=== PATIENT | male | born 1940 | race Caucasian/White ===

== ENCOUNTER 2019-03-25 10:17 | Outpatient (REF) | payer OTHER, SELFPAY ==
[2019-03-25 15:33] LABS: Abs Immature Grans 0.02 k/cumm (0.0-0.09); Absolute Basophil Count 0.02 k/cumm (0.0-0.2); Absolute Eosinophil Count 0.45 k/cumm (0.0-0.7); Absolute Lymphocyte Count 1.01 k/cumm (1.2-3.4); Absolute Monocyte Count 0.67 k/cumm (0.11-0.7); Absolute Neutrophil Count 5.15 k/cumm (1.2-6.7); Basophils % 0.3; Eosinophils % 6.1; HCT 22.5 % (40.0-50.0); HGB 7.2 g/dL (13.5-17.5); Immature Grans % 0.3 %; Lymphocytes % 13.8; Mean Corpuscular Hemoglobin 30.3 pg (27.0-33.0); Mean Corpuscular Volume 94.5 fL (80-95); Mean Platelet Volume 10.5 fL (8.0-11.0); Monocytes % 9.2; Neutrophils % 70.3; Platelet Count 256 x1000/uL (130-400); RBC 2.38 m/cumm (4.50-6.00); RBC Distribution Width 13.4 % (11.8-14.1); White Blood Cell Count 7.32 k/cumm (4.4-10.8)
[2019-03-25 16:02] LABS: Anion Gap 11.4 mmol/L (3-11); BUN 58 mg/dL (7-18); CO2 24.6 mmol/L (21.0-32.0); CREATININE 2.42 mg/dL (0.70-1.30); Calcium 8.8 mg/dL (8.5-10.1); Chloride 110 mmol/L (98-107); Glucose 163 mg/dL (74-106); Potassium 3.2 mmol/L (3.5-5.1); Sodium 146 mmol/L (136-145)
== END 2019-03-25 10:37 ==
LOC: LBN 10:17
PROVIDERS: Nurse Practitioner Adult Health; PCP Internal Medicine; Visit Provider Internal Medicine
DX: N18.3 Chronic kidney disease, stage 3 (moderate) (principal); E78.5 Hyperlipidemia, unspecified; Z48.811 Encounter for surgical aftercare following surgery on the nervous system
CPT/HCPCS: 80048; 85025

== ENCOUNTER 2019-04-18 07:06 | Emergency (ER) | payer OTHER, SELFPAY ==
[2019-04-18] VITALS (47 sets, daily range): BP systolic 115–169; BP diastolic 40–100; PULSE 41–70; RESP 10–20; TEMP 36–36.4; O2SAT 82–99
--- NOTE | 2019-04-18 07:51 | ED.GENADUL_ITS ---
Discharge Plan Disposition Patient Disposition: HOME Condition: Stable Discharge Details Chief Complaint: GenMedical Clinical Impression: Fall, Anemia, Creatinine elevation Primary Care Provider: KRISTINA VALDOVINOS ED Provider: Rosanne Ordaz Home Meds and New Rx's Prescriptions: Continued furosemide [Lasix] 40 mg Tablet 40 mg DAILY RF: 0 insulin glargine 100 unit/mL Solution 16 unit SUBCUT DAILY RF: 0 doxazosin 1 mg Tablet 1 mg DAILY RF: 0 doxazosin 1 mg Tablet 1 mg DAILY RF: 0 pravastatin 40 mg Tablet 40 mg DAILY RF: 0 chlorthalidone 25 mg Tablet 25 mg DAILY RF: 0 aspirin [Aspir-Low] 81 mg Tablet,Delayed Release (Dr/Ec) 81 mg DAILY RF: 0 isosorbide mononitrate 60 mg Tablet Extended Release 24 Hr PO DAILY RF: 0 magnesium hydroxide [Milk of Magnesia] 400 mg/5 mL Suspension PRNRF: 0 amlodipine 10 mg Tablet 10 mg DAILY RF: 0 bisacodyl [Dulcolax (bisacodyl)] 10 mg Suppository HI PRNRF: 0 ferrous sulfate 325 mg (65 mg iron) Tablet 325 mg DAILY RF: 0 Fleet Enema 19-7 gram/118 mL Enema HI PRNRF: 0 omeprazole 20 mg Capsule,Delayed Release(Dr/Ec) 20 mg DAILY RF: 0 allopurinol 300 mg Tablet 300 mg DAILY RF: 0 ergocalciferol (vitamin D2) 1,250 mcg (50,000 unit) Capsule 1,250 mcg DAILY RF: 0 labetalol 100 mg Tablet 100 mg BID RF: 0 losartan 100 mg Tablet 100 mg DAILY RF: 0 albuterol sulfate 2.5 mg/0.5 mL Solution For Nebulization PRNRF: 0 olodaterol 2.5 mcg/actuation Mist 2.5 INHALATION RF: 0 Discharge Instructions Instructions: Anemia (ED), Impaired Kidney Function (ED) Additional Instructions: Please return immediately to the emergency department if you develop any new or worsening symptoms, if your condition does not improve as expected, or if you become otherwise concerned. It is extremely important that you call soon as possible to make an appointment to be seen in follow-up for this visit by your primary care doctor. Referrals: KRISTINA VALDOVINOS [Primary Care Provider] - Discharge Data Discharge Date/Time-TO BE ENTERED AT DEPARTURE: 04/18/19 12:30 Medical Decision Making Keithsophia Ibrahim is a 78-year-old man with a history of COPD, CHF, hypertension, ins ulin-dependent diabetes who presented to the emergency department from rehab facility for being found down, low blood sugar. On exam patient is somewhat chronically ill appearing but acutely nontoxic, he is alert and pleasant. No abnormalities on his back exam. Nonfocal neurologic exam. Scrotal edema chronic and improving per nurse at rehab facility. Fingerstick here 110. Concern for possible recurrent hypoglycemia, metabolic/lyte derangement, UTI. Possible acute emergent intracranial trauma, acute emergent intra- abdominal/retroperitoneal/lumbar spine injury given complaint of low back pain and patient is a poor historian with possible head trauma. Doubt ACS. Exam/history is not consistent with acute respiratory pathology, sepsis, acute emergent aortic process, cerebrovascular accident, pulmonary embolism. Plan for CT head, CT abdomen/pelvis/lumbar, UA,, screening labs. Will monitor and reassess. Labs reviewed, hemoglobin 8.8, creatinine 3.0, troponin 0.05. I contacted the [facility] as the patient had an appointment with surgery there this afternoon, they stated that they could not accept patient in transfer to the [facility] from the emergency department for their surgical appointment regarding hernia repair. They also stated that they could not accept any patient for admission at this time. Patient states that he has no complaints and feels quite well, states that he would like to go home. We will continue to monitor. UA negative. CT negative for acute process per radiology. Troponin 0.07. Patient continues to state that he has no symptoms whatsoever and feels ready to go. He has eaten lunch without issue, no further episodes of hypoglycemia. Given patient's elevated creatinine and overall presentation, I do not believe that this trace elevation in troponin is related to acute coronary syndrome at this time. I discussed patient with [employer] director transportation at rehab facility, relayed lab abnormalities. She states that she feels comfortable accepting patient to rehab, will recheck labs tomorrow. At this time I do not feel that admission to the hospital would benefit the patient, in addition, the patient states that he would prefer to go back to rehab and does not want to be admitted. I had a lengthy discussion with Patient regarding return to emergency department precautions, home care, and importance of outpatient follow-up. Pt verbalizes understanding of the plan and is amenable. Patient discharged to home with clear plan for outpatient follow-up. All questions were answered. Disposition decision was made weighing the risks and benefits of hospitalization versus outpatient treatment, the risk for further decompensation, and the patient's wishes. Medical Records Medical records reviewed: Yes I reviewed the patient's medical records. Imaging Data Radiologic Study: Attestation: I personally reviewed and interpreted this imaging study as follows: Radiologist's impression: CT head, abdomen/pelvis, lumbar reported over the phone by radiology: Negative Lab Data Lab results reviewed: Yes I reviewed the patient's lab results. Labs: Laboratory Tests Range/Units 04/18/19 04/18/19 04/18/19 07:50 07:50 07:50 WBC (4.4-10.8) k/cumm 5.84 RBC (4.50-6.00) m/cumm 2.97 L Hgb (13.5-17.5) g/dL 8.8 L Hct (40.0-50.0) % 28.1 L MCV (80-95) fL 94.6 MCH (27.0-33.0) pg 29.6 MCHC (32.0-36.0) g/dL 31.3 L RDW (11.8-14.1) % 13.6 Plt Count (130-400) x1000/uL 180 MPV (8.0-11.0) fL 11.3 H Immature Gran % % 0.2 Neutrophils % 80.8 Lymphocytes % 12.3 Monocytes % 2.9 Eosinophils % 3.3 Basophils % 0.5 Absolute Neutrophils (1.2-6.7) k/cumm 4.72 Absolute Lymphocytes (1.2-3.4) k/cumm 0.72 L Absolute Monocytes (0.11-0.7) k/cumm 0.17 Absolute Eosinophils (0.0-0.7) k/cumm 0.19 Absolute Basophils (0.0-0.2) k/cumm 0.03 RBC Morphology See below Polychromasia Present Hypochromasia 1+ Poikilocytosis 1+ Anisocytosis 2+ Sodium Cancelled 143 Potassium Cancelled 3.4 L Chloride Cancelled 105 Carbon Dioxide Cancelled 27.8 Anion Gap Cancelled 10.2 BUN Cancelled 74 H Creatinine Cancelled 3.03 H Estimated GFR/1.73 m2 Cancelled 20.21 Glucose Cancelled 115 H Calcium Cancelled 9.3 Magnesium (1.8-2.4) mg/dL Total Bilirubin Cancelled 0.7 AST Cancelled 24 ALT Cancelled 16 Alkaline Phosphatase Cancelled 84 Creatine Kinase (39-308) U/L Troponin I (<0.06) ng/Ml 0.05 NT-Pro-B Natriuret Pep (<300) pg/mL Total Protein Cancelled 7.0 Albumin Cancelled 3.7 Urine Color (Yellow) Urine Clarity (Clear) Urine pH (5-8) Ur Specific [place] (1.005-1.025) Urine Protein (Negative) mg/dL Urine Ketones (Negative) mg/dL Urine Blood (Negative) Urine Nitrite (Negative) Urine Bilirubin (Negative) Urine Urobilinogen (Up TO 0.2) EU/dL Ur Leukocyte Esterase (Negative) Urine RBC (0-2) HPF Urine WBC (0-5) HPF Ur Epithelial Cells (Negative) HPF Urine Crystals (Negative) HPF Urine Bacteria (Negative) HPF Urine Casts (Negative) LPF Urine Mucus (Negative) Ur Culture Indicated? Urine Glucose (Negative) mg/dL Range/Units 04/18/19 04/18/19 04/18/19 07:50 07:50 08:19 WBC (4.4-10.8) k/cumm RBC (4.50-6.00) m/cumm Hgb (13.5-17.5) g/dL Hct (40.0-50.0) % MCV (80-95) fL MCH (27.0-33.0) pg MCHC (32.0-36.0) g/dL RDW (11.8-14.1) % Plt Count (130-400) x1000/uL MPV (8.0-11.0) fL Immature Gran % % Neutrophils % Lymphocytes % Monocytes % Eosinophils % Basophils % Absolute Neutrophils (1.2-6.7) k/cumm Absolute Lymphocytes (1.2-3.4) k/cumm Absolute Monocytes (0.11-0.7) k/cumm Absolute Eosinophils (0.0-0.7) k/cumm Absolute Basophils (0.0-0.2) k/cumm RBC Morphology Polychromasia Hypochromasia Poikilocytosis Anisocytosis Sodium Potassium Chloride Carbon Dioxide Anion Gap BUN Creatinine Estimated GFR/1.73 m2 Glucose Calcium Magnesium (1.8-2.4) mg/dL 2.3 Total Bilirubin AST ALT Alkaline Phosphatase Creatine Kinase (39-308) U/L 205 Troponin I (<0.06) ng/Ml NT-Pro-B Natriuret Pep (<300) pg/mL 2691 H Total Protein Albumin Urine Color (Yellow) Yellow Urine Clarity (Clear) Clear Urine pH (5-8) 5.5 Ur Specific [place] (1.005-1.025) 1.025 Urine Protein (Negative) mg/dL Negative Urine Ketones (Negative) mg/dL Negative Urine Blood (Negative) Trace-intact H Urine Nitrite (Negative) Negative Urine Bilirubin (Negative) Negative Urine Urobilinogen (Up TO 0.2) EU/dL 0.2 Ur Leukocyte Esterase (Negative) Negative Urine RBC (0-2) HPF 0-2 Urine WBC (0-5) HPF 0-2 Ur Epithelial Cells (Negative) HPF Few Urine Crystals (Negative) HPF Negative Urine Bacteria (Negative) HPF Few Urine Casts (Negative) LPF Negative Urine Mucus (Negative) Negative Ur Culture Indicated? No Urine Glucose (Negative) mg/dL Negative Range/Units 04/18/19 10:33 WBC (4.4-10.8) k/cumm RBC (4.50-6.00) m/cumm Hgb (13.5-17.5) g/dL Hct (40.0-50.0) % MCV (80-95) fL MCH (27.0-33.0) pg MCHC (32.0-36.0) g/dL RDW (11.8-14.1) % Plt Count (130-400) x1000/uL MPV (8.0-11.0) fL Immature Gran % % Neutrophils % Lymphocytes % Monocytes % Eosinophils % Basophils % Absolute Neutrophils (1.2-6.7) k/cumm Absolute Lymphocytes (1.2-3.4) k/cumm Absolute Monocytes (0.11-0.7) k/cumm Absolute Eosinophils (0.0-0.7) k/cumm Absolute Basophils (0.0-0.2) k/cumm RBC Morphology Polychromasia Hypochromasia Poikilocytosis Anisocytosis Sodium Potassium Chloride Carbon Dioxide Anion Gap BUN Creatinine Estimated GFR/1.73 m2 Glucose Calcium Magnesium (1.8-2.4) mg/dL Total Bilirubin AST ALT Alkaline Phosphatase Creatine Kinase (39-308) U/L Troponin I (<0.06) ng/Ml 0.07 NT-Pro-B Natriuret Pep (<300) pg/mL Total Protein Albumin Urine Color (Yellow) Urine Clarity (Clear) Urine pH (5-8) Ur Specific [place] (1.005-1.025) Urine Protein (Negative) mg/dL Urine Ketones (Negative) mg/dL Urine Blood (Negative) Urine Nitrite (Negative) Urine Bilirubin (Negative) Urine Urobilinogen (Up TO 0.2) EU/dL Ur Leukocyte Esterase (Negative) Urine RBC (0-2) HPF Urine WBC (0-5) HPF Ur Epithelial Cells (Negative) HPF Urine Crystals (Negative) HPF Urine Bacteria (Negative) HPF Urine Casts (Negative) LPF Urine Mucus (Negative) Ur Culture Indicated? Urine Glucose (Negative) mg/dL ECG Data Attestation: I personally reviewed and interpreted this ECG (s) as follows: Interpretation: EKG shows sinus bradycardia at 52, left bundle branch block (present on prior per rehab facility), does not meet STEMI criteria, nondiagnostic EKG HPI General Mode of arrival: EMS . Date/Time Provider Initiated Documentation: 04/18/19 07:39 . Information obtained by: patient, RN notes reviewed and old records reviewed . HPI Narrative: Keith Ibrahim is a 78-year-old man with a history of insulin- dependent diabetes, hypertension, CHF, COPD presenting to the emergency department from [facility] rehab with fall, low blood sugar. Per rehab nurse who I spoke with on the phone, patient was found on the floor in his room this morning. He was disoriented, found to have a blood sugar of 46 and was given glucagon. Pt's mental status returned to baseline after glucagon per nurse. Nurse also reports that patient recently had hernia repair and has had a chronically swollen scrotum, she reports that his scrotal edema is improving. She reports that patient was in his usual state of health yesterday. Patient is a poor historian. Patient states to me that he feels a little shaky and otherwise fine. He denies falling this morning. He states that he has low back pain, cannot describe the duration of his pain, but states that it has been going on for longer than this morning. He denies any other pain, fever, shortness of breath, cough, numbness, weakness. Patient reports I basically feel fine, I don't think I need to be here. Related Data Home Medications Medication Instructions Recorded Confirmed Fleet Enema ml HI PRN 04/18/19 albuterol sulfate PRN 04/18/19 allopurinol 300 mg DAILY 04/18/19 04/18/19 amlodipine 10 mg DAILY 04/18/19 04/18/19 aspirin [Aspir-Low] 81 mg DAILY 04/18/19 04/18/19 bisacodyl [Dulcolax (bisacodyl)] mg HI PRN 04/18/19 chlorthalidone 25 mg DAILY 04/18/19 04/18/19 doxazosin 1 mg DAILY 04/18/19 04/18/19 doxazosin 1 mg DAILY 04/18/19 04/18/19 ergocalciferol (vitamin D2) 1,250 mcg DAILY 04/18/19 04/18/19 ferrous sulfate 325 mg DAILY 04/18/19 04/18/19 furosemide [Lasix] 40 mg DAILY 04/18/19 04/18/19 insulin glargine 16 unit SUBCUT DAILY 04/18/19 04/18/19 isosorbide mononitrate mg PO DAILY 04/18/19 labetalol 100 mg BID 04/18/19 04/18/19 losartan 100 mg DAILY 04/18/19 04/18/19 magnesium hydroxide [Milk of PRN 04/18/19 Magnesia] olodaterol 2.5 INHALATION 04/18/19 omeprazole 20 mg DAILY 04/18/19 04/18/19 pravastatin 40 mg DAILY 04/18/19 04/18/19 General Stated Complaint: GenMedical ALBINA: 3 Review of Systems Narrative: Constitutional: denies fevers Eyes: denies eye pain ENT: denies ear pain, dental pain, sore throat Cardiovascular: denies chest pain Respiratory: denies SOB, cough GI: denies abdominal pain, vomiting, diarrhea : denies flank pain, reports scrotal edema MSK: denies neck pain, arthralgias, myalgias, reports low back pain Skin: denies rash Neuro: denies headaches, numbness, weakness [facility] Medical History (Updated 04/18/19 @ 12:25 by Rosanne Ordaz MD) COPD (chronic obstructive pulmonary disease) (Chronic) Depression (Chronic) Diabetes mellitus (Chronic) GERD (gastroesophageal reflux disease) (Chronic) Gout (Chronic) Hernia (Chronic) High cholesterol (Chronic) Renal failure (Chronic) Renal insufficiency (Chronic) Social History Smoking/Tobacco Use Status: Never Alcohol Intake: never Drug use: Never Substance use type: does not use Do you feel safe at home: Yes Do you feel safe in your relationship?: Yes Exam Narrative Exam Narrative: Constitutional: Somewhat chronically ill-appearing but acutely well and [id number], pleasant, conversing normally HENT: head atraumatic/normocephalic/normal inspection, mucous membranes moist Eyes: conjunctiva normal, sclera normal, pupils 3mm b/l, EOMI without nystagmus Neck: no stridor, normal ROM, trachea midline, no cervical spine tenderness to palpation Chest: normal inspection Resp: normal work of breathing, LCTAB Cardio: normal rate, normal rhythm, no murmur appreciated GI: abdomen soft, non-tender, non-distended : 3+ scrotal edema without skin breakdown, erythema, or other overlying skin changes, no tenderness to palpation Back: normal inspection, no rash, thoracic and lumbar spine nontender to palpation, no paraspinal tenderness to palpation bilaterally Skin: warm, dry, normal color, no rash Neuro: alert, not altered, powerhouse tender 2-12 intact, motor 5 out of 5 throughout, normal bilateral [id number], normal bilateral [id number], no pronator drift, normal tone Ext: No posterior calf tenderness to palpation, moving all extremities equally Psych: normal mood, normal affect, normal behavior Course Vital Signs Vital signs: Vital Signs Temperature 36.0 C L 04/18/19 07:07 Pulse 57 L 04/18/19 07:07 Respiratory Rate 16 04/18/19 07:07 Blood Pressure 132/50 L 04/18/19 07:07 Pulse Oximetry 95 04/18/19 07:07 Temperature 36.0 C L 04/18/19 07:07 Temperature Source Tympanic 04/18/19 07:07 Pulse 57 L 04/18/19 07:07 Respiratory Rate 16 04/18/19 07:07 Respiratory Effort Non-Labored 04/18/19 07:12 Blood Pressure 132/50 L 04/18/19 07:07 Blood Pressure Position Sitting 04/18/19 07:07 Pulse Oximetry 95 04/18/19 07:07 Oxygen Delivery Method Room Air 04/18/19 07:07 Oxygen Flow Rate 0 04/18/19 07:07 Pain Level 10 04/18/19 07:07
[2019-04-18 08:03] LABS: Abs Immature Grans 0.01 k/cumm (0.0-0.09); Absolute Basophil Count 0.03 k/cumm (0.0-0.2); Absolute Eosinophil Count 0.19 k/cumm (0.0-0.7); Absolute Lymphocyte Count 0.72 k/cumm (1.2-3.4); Absolute Monocyte Count 0.17 k/cumm (0.11-0.7); Absolute Neutrophil Count 4.72 k/cumm (1.2-6.7); Basophils % 0.5; Eosinophils % 3.3; HCT 28.1 % (40.0-50.0); HGB 8.8 g/dL (13.5-17.5); Immature Grans % 0.2 %; Lymphocytes % 12.3; Mean Corp. HGB Concentration 31.3 g/dL (32.0-36.0); Mean Corpuscular Hemoglobin 29.6 pg (27.0-33.0); Mean Corpuscular Volume 94.6 fL (80-95); Mean Platelet Volume 11.3 fL (8.0-11.0); Monocytes % 2.9; Neutrophils % 80.8; Platelet Count 180 x1000/uL (130-400); RBC 2.97 m/cumm (4.50-6.00); RBC Distribution Width 13.6 % (11.8-14.1); White Blood Cell Count 5.84 k/cumm (4.4-10.8)
[2019-04-18 08:23] LABS: ALT 16 U/L (16-63); AST 24 U/L (15-37); Albumin 3.7 g/dL (3.4-5.0); Alkaline Phosphatase 84 U/L (46-116); Anion Gap 10.2 mmol/L (3-11); BUN 74 mg/dL (7-18); Bilirubin, Total 0.7 mg/dL (0.2-1.0); CO2 27.8 mmol/L (21.0-32.0); CREATININE 3.03 mg/dL (0.70-1.30); Calcium 9.3 mg/dL (8.5-10.1); Chloride 105 mmol/L (98-107); Estimated GFR 20.21 (mL/min/1.73m2); Glucose 115 mg/dL (74-106); Potassium 3.4 mmol/L (3.5-5.1); Sodium 143 mmol/L (136-145); Troponin I 0.05 ng/Ml (<0.06)
[2019-04-18 08:28] LABS: Bilirubin Negative (Negative); Blood Trace-intact (Negative); Clarity Clear (Clear); Glucose Negative (Negative); Ketones Negative (Negative); Leukocyte Esterase Negative (Negative); Nitrite Negative (Negative); Specific Gravity 1.025 (1.005-1.025); Urobilinogen 0.2 EU/dL (Up TO 0.2); pH 5.5 (5-8)
--- NOTE | 2019-04-18 08:30 | DI.CT_ITS ---
EXAM: CT HEAD WO CLINICAL HISTORY: fall. TECHNIQUE: Imaging Protocol: Axial computed tomography images with coronal and sagittal reformatted images were created and reviewed COMPARISON: No exams were available for comparison FINDINGS: Ventricles and Extra axial spaces: Normal in size and morphology for the patient's age. Hemorrhage: None. Cerebral parenchyma: Normal. There are areas of decreased attenuation in the white matter consistent with small vessel ischemic disease. Midline shift: None. Brainstem/Cerebellum: Normal. Calvarium: Normal. Visualized Paranasal sinuses/Mastoids: Clear. There is patient motion artifact. IMPRESSION: No acute intracranial process. The findings were discussed with the emergency department on the date of the examination. RADIATION DOSE DELIVERED: DATA REPOSITORY: All CT scans at this facility are submitted to the National Radiology Data Registry (NRDR) Dose Index Registry (DIR) with the [employer] ([employer]). RADIATION OPTIMIZATION: All CT scans at this facility use at least one of these dose optimization te chniques: automated exposure control; mA and/or kV adjustment per patient size (includes targeted exa ms where dose is matched to clinical indication); or iterative reconstruction.
--- NOTE | 2019-04-18 08:36 | NUR.NOTE ---
Nursing Note: Spoke with [facility] staff. Staff reports that the [facility]. Scrotum is very swollen. MD Ordaz made aware. UA sample sent to lab.
--- NOTE | 2019-04-18 08:40 | DI.CT_ITS ---
EXAM: CT ABDOMEN PELVIS WO and CT lumbar spine reconstructions CLINICAL HISTORY: trauma, diffuse low back pain, flank pain. TECHNIQUE: Imaging Protocol: Axial computed tomography images with coronal and sagittal reformatted images were created and reviewed. COMPARISON: No exams were available for comparison FINDINGS: ABDOMEN: Lung Bases: Moderate bilateral pleural effusions and bilateral basilar infiltrates which may represen t atelectasis or pneumonia. Cardiomegaly. Liver: Normal density. No measurable mass. Gallbladder and biliary tract: Cholelithiasis. No biliary ductal dilatation. There does appear to b e sludge within the gallbladder. Pancreas: Normal density, no abnormal calcifications or inflammatory process. Spleen: Normal. Kidneys: Normal size, contour and axis. No radiodense stones or obstructive uropathy. 2.3 cm. round, hypodense right renal cortical lesion. This is indeterminate on this noncontrast examination. Adrenal glands: 1.7 cm left adrenal nodule. Lymph nodes: Within normal limits. Abdominal Aorta: Atherosclerosis. No aneurysmal dilatation. PELVIS: Bladder: Incompletely distended. The apparent bladder wall thickening appears to be due to incomplet e distention. Bowel: No obstruction or bowel wall thickening. Normal appendix is visualized. Peritoneal cavity: No ascites, collection or mesenteric inflammatory response. Large bilateral fat co ntaining inguinal hernia. Reproductive organs: Enlarged prostate gland. Bones: Degenerative changes are seen in the spine. No acute fracture is identified. Lumbar spine: No acute fracture or subluxation is seen in the lumbar spine. There is a left convex s coliosis of the lumbar spine. Moderately severe degenerative changes are present throughout the lumb ar spine. Old fractures of the left transverse processes of L2 and L3 are noted. IMPRESSION: 1. No evidence of acute abdominal or pelvic injury. 2. Moderate bilateral pleural effusions and bilateral basilar infiltrates which may represent atelect asis or pneumonia. Cardiomegaly. 3. 1.7 cm left adrenal nodule, follow-up is recommended on a nonemergent basis. 4. 0.3 cm hypodense lesion in the right kidney. Nonemergent follow-up is recommended. 5. Cholelithiasis with possible sludge. No biliary ductal dilatation. 6. These findings were discussed with the emergency department on the date of the examination. DATA REPOSITORY: All CT scans at this facility are submitted to the National Radiology Data Registry (NRDR) Dose Index Registry (DIR) with the [employer] ([employer]). RADIATION OPTIMIZATION: All CT scans at this facility use at least one of these dose optimization te chniques: automated exposure control; mA and/or kV adjustment per patient size (includes targeted exa ms where dose is matched to clinical indication); or iterative reconstruction.
[2019-04-18 08:41] LABS: Creatine Kinase 205 U/L (39-308)
[2019-04-18 08:47] LABS: Magnesium 2.3 mg/dL (1.8-2.4); NT-proBNP 2691 pg/mL (<300)
[2019-04-18 08:49] LABS: Anisocytosis 2+; Hypochromasia 1+; Poikilocytes 1+; Polychromasia Present
[2019-04-18 09:02] LABS: WBC 0-2 HPF (0-5)
[2019-04-18 09:03] LABS: Bacteria Few HPF (Negative); Epithelial Cells Few HPF (Negative); RBC 0-2 HPF (0-2)
[2019-04-18 09:04] LABS: C & S Indicated? No; Casts Negative LPF (Negative); Crystals Negative HPF (Negative); Mucus Negative (Negative)
--- NOTE | 2019-04-18 10:08 | NUR.NOTE ---
Nursing Note: BGL [id number]
--- NOTE | 2019-04-18 10:16 | NUR.NOTE ---
Nursing Note: PT care report transferred to Bouchra (RN) at this time. PT is alert to baseline. Vitals stable.
[2019-04-18 10:58] LABS: Troponin I 0.07 ng/Ml (<0.06)
== END 2019-04-18 12:30 | disposition home or self-care (01) ==
PROVIDERS: Emergency Provider Student in an Organized Health Care Education/Training Program; PCP Student in an Organized Health Care Education/Training Program
DX: E11.649 Type 2 diabetes mellitus with hypoglycemia without coma (principal); Z79.4 Long term (current) use of insulin; W19.XXXA Unspecified fall, initial encounter; R94.4 Abnormal results of kidney function studies; D64.9 Anemia, unspecified; J44.9 Chronic obstructive pulmonary disease, unspecified; I13.0 Hypertensive heart and chronic kidney disease with heart failure and stage 1 through stage 4 chronic kidney disease, or unspecified chronic kidney disease; I50.9 Heart failure, unspecified; N18.9 Chronic kidney disease, unspecified; E11.22 Type 2 diabetes mellitus with diabetic chronic kidney disease
CPT/HCPCS: 36415; 36416; 80053; 82550; 82962; 93005; 99285; 70450; 74176; 81003; 81015; 83735; 83880; 84484; 85025; 93010

== ENCOUNTER 2019-04-26 10:12 | Outpatient (CLI) | payer OTHER, SELFPAY ==
[2019-04-26 12:39] LABS: Abs Immature Grans 0.02 k/cumm (0.0-0.09); Absolute Basophil Count 0.01 k/cumm (0.0-0.2); Absolute Eosinophil Count 0.12 k/cumm (0.0-0.7); Absolute Lymphocyte Count 0.57 k/cumm (1.2-3.4); Absolute Monocyte Count 0.34 k/cumm (0.11-0.7); Absolute Neutrophil Count 7.54 k/cumm (1.2-6.7); Basophils % 0.1; Eosinophils % 1.4; HCT 24.6 % (40.0-50.0); HGB 7.2 g/dL (13.5-17.5); Immature Grans % 0.2 %; Lymphocytes % 6.6; Mean Corp. HGB Concentration 29.3 g/dL (32.0-36.0); Mean Corpuscular Hemoglobin 28.9 pg (27.0-33.0); Mean Corpuscular Volume 98.8 fL (80-95); Mean Platelet Volume 11.3 fL (8.0-11.0); Neutrophils % 87.7; Platelet Count 165 x1000/uL (130-400); RBC 2.49 m/cumm (4.50-6.00); RBC Distribution Width 13.8 % (11.8-14.1)
[2019-04-26 13:06] LABS: Anion Gap 8.2 mmol/L (3-11); CO2 30.8 mmol/L (21.0-32.0); CREATININE 2.78 mg/dL (0.70-1.30); Calcium 9.5 mg/dL (8.5-10.1); Chloride 109 mmol/L (98-107); Estimated GFR 22.27 (mL/min/1.73m2); Glucose 162 mg/dL (74-106); Potassium 3.9 mmol/L (3.5-5.1); Sodium 148 mmol/L (136-145)
[2019-04-26 13:10] LABS: Diff Comment RBC Morph Reviewed
[2019-04-26 13:11] LABS: BUN 89 mg/dL (7-18); Hypochromasia 2+; Microcytosis 1+; Poikilocytes 1+
== END 2019-04-26 10:32 ==
PROVIDERS: PCP Student in an Organized Health Care Education/Training Program; Visit Provider Nurse Practitioner Adult Health
DX: E78.5 Hyperlipidemia, unspecified (principal); N18.3 Chronic kidney disease, stage 3 (moderate); K40.90 Unilateral inguinal hernia, without obstruction or gangrene, not specified as recurrent
CPT/HCPCS: 36415; 80048; 85025

== ENCOUNTER 2019-04-28 08:47 | Emergency (ER) | payer OTHER, SELFPAY ==
[2019-04-28] VITALS (12 sets, daily range): BP systolic 146–154; BP diastolic 51–63; PULSE 62–76; RESP 0–24; TEMP 36.7; O2SAT 86–99
--- NOTE | 2019-04-28 08:45 | DI.RAD_ITS ---
EXAM: XR CHEST 2V PA LATERAL CLINICAL HISTORY: cough, sob, r/o chf vs pneumonia TECHNIQUE: COMPARISON: CT LUMBAR SPINE RECONS from 04/18/2019 CT ABDOMEN PELVIS WO from 04/18/2019 FINDINGS: There are bilateral pleural effusions as noted on CT of April 17. There are bilateral diffuse patch y interstitial infiltrates, findings as described are consistent with CHF, cardiomegaly also noted. IMPRESSION: Findings consistent with CHF, additional superimposed infectious process cannot be excluded on the ba sis of this examination.
--- NOTE | 2019-04-28 09:03 | ED.GENADUL_ITS ---
Discharge Plan Disposition Patient Disposition: HOME Condition: Stable Discharge Details Chief Complaint: RespSymp Clinical Impression: Acute on chronic systolic CHF (congestive heart failure), Peripheral edema Primary Care Provider: Dana Klein ED Provider: Angeline Xiong Home Meds and New Rx's Prescriptions: Continued furosemide [Lasix] 40 mg Tablet 40 mg PO DAILY RF: 0 insulin glargine 100 unit/mL Solution 16 unit SUBCUT DAILY RF: 0 doxazosin 1 mg Tablet 1 mg DAILY RF: 0 doxazosin 1 mg Tablet 1 mg PO DAILY RF: 0 pravastatin 40 mg Tablet 40 mg DAILY RF: 0 chlorthalidone 25 mg Tablet 25 mg PO BID RF: 0 aspirin [Aspir-Low] 81 mg Tablet,Delayed Release (Dr/Ec) 81 mg DAILY RF: 0 isosorbide mononitrate 60 mg Tablet Extended Release 24 Hr PO DAILY RF: 0 magnesium hydroxide [Milk of Magnesia] 400 mg/5 mL Suspension PRNRF: 0 amlodipine 10 mg Tablet 10 mg PO DAILY RF: 0 bisacodyl [Dulcolax (bisacodyl)] 10 mg Suppository 10 mg ME PRN PRNRF: 0 ferrous sulfate 325 mg (65 mg iron) Tablet 325 mg DAILY RF: 0 Fleet Enema 19-7 gram/118 mL Enema 118 ml ME PRN PRNRF: 0 omeprazole 20 mg Capsule,Delayed Release(Dr/Ec) 20 mg DAILY RF: 0 allopurinol 300 mg Tablet 150 mg PO DAILY RF: 0 ergocalciferol (vitamin D2) 1,250 mcg (50,000 unit) Capsule 1,250 mcg PO DAILY RF: 0 labetalol 100 mg Tablet 100 mg BID RF: 0 losartan 100 mg Tablet 100 mg DAILY RF: 0 albuterol sulfate 2.5 mg/0.5 mL Solution For Nebulization PRNRF: 0 olodaterol 2.5 mcg/actuation Mist 2.5 INHALATION RF: 0 acetaminophen 325 mg Tablet 650 mg PO Q8H PRNRF: 0 Discharge Instructions Instructions: Heart Failure (ED), Leg Edema (ED) Additional Instructions: Increase your Lasix dose from 20 mg daily to 40 mg daily over the next 3 days. Elevate both of your legs as much as possible. Wear compression stockings as much as possible. Follow-up with your primary care doctor within the next 2 days for reevaluation. Return to the emergency department if you develop any worsening or concerning symptoms such as fever, worsening cough or shortness of breath. Discharge Data Discharge Date/Time-TO BE ENTERED AT DEPARTURE: 04/28/19 10:41 Discharge Physician: Angeline Xiong Medical Decision Making 09 --79-year-old male with a history of CHF, COPD, diabetes presents for shortness of breath and lower extremity edema. He is chronically on 2.5 L of nasal cannula. ED staff knows patient well and states his lower extremity edema is his baseline. Patient was seen here last week and his edema was noted to be similar. Patient denied any shortness of breath on arrival. He also initially denied cough but then stated he had a cough with green sputum. EKG on arrival notes a rate of 91, sinus, first-degree block. PVCs and left bundle branch block. No acute change from previous EKG. Patient has diminished breath sounds at bases with scattered wheezing and fine crackles noted at left base. He has 2+ pitting lower extremity edema. He has audible wheezes which ED staff also states his baseline. Differential diagnosis includes acute CHF exacerbation, acute COPD, pneumonia, bronchitis. Will check screening labs, chest x-ray and give a DuoNeb and reassess. 1010 --labs and imaging reviewed. Normal white blood cell count. Hemoglobin stable at 7.2. Creatinine stable at 2.7. Troponin negative. BNP 4476 increased from 2 weeks ago at 2691. Chest x-ray notes findings consistent with CHF. Medication list note that patient has not taken his Lasix today. He takes 20 mg daily. We will give a 40 mg p.o. dose now. Patient is requesting to go back to the rehab. Patient yelling at staff and attempting to get up from the stretcher so he can leave. Case discussed with patient's son Magnus over the phone who inquired about his condition. He was advised that he will be returning back to the rehab with plan for increased dose of Lasix over the next few days. Will hold on antibiotics at this time as patient has no fever with normal white blood cell count. Results and case also discussed with RIYA Kim at [facility] and she is agreeable with plan for discharge back to rehab. Medical Records Medical records reviewed: Yes I reviewed the patient's medical records. Imaging Data Radiologic Study: Radiologist's impression: XR CHEST 2V PA LATERAL CLINICAL HISTORY: cough, sob, r/o chf vs pneumonia TECHNIQUE: COMPARISON: CT LUMBAR SPINE RECONS from 04/18/2019 CT ABDOMEN PELVIS WO from 04/18/2019 FINDINGS: There are bilateral pleural effusions as noted on CT of April 17. There are bilateral diffuse patchy interstitial infiltrates, findings as described are consistent with CHF, cardiomegaly also noted. IMPRESSION: Findings consistent with CHF, additional superimposed infectious process cannot be excluded on the basis of this examination. Lab Data Lab results reviewed: Yes I reviewed the patient's lab results. Labs: Laboratory Tests Range/Units 04/28/19 04/28/19 04/28/19 09:12 09:12 09:12 WBC (4.4-10.8) k/cumm 4.82 RBC (4.50-6.00) m/cumm 2.39 L Hgb (13.5-17.5) g/dL 7.2 L Hct (40.0-50.0) % 23.6 L MCV (80-95) fL 98.7 H MCH (27.0-33.0) pg 30.1 MCHC (32.0-36.0) g/dL 30.5 L RDW (11.8-14.1) % 14.1 Plt Count (130-400) x1000/uL 148 MPV (8.0-11.0) fL 11.1 H Immature Gran % % 0.2 Neutrophils % 72.4 Lymphocytes % 17.0 Monocytes % 7.9 Eosinophils % 2.1 Basophils % 0.4 Absolute Neutrophils (1.2-6.7) k/cumm 3.49 Absolute Lymphocytes (1.2-3.4) k/cumm 0.82 L Absolute Monocytes (0.11-0.7) k/cumm 0.38 Absolute Eosinophils (0.0-0.7) k/cumm 0.10 Absolute Basophils (0.0-0.2) k/cumm 0.02 Sodium (136-145) mmol/L 147 H Potassium (3.5-5.1) mmol/L 3.4 L Chloride (98-107) mmol/L 109 H Carbon Dioxide (21.0-32.0) mmol/L 30.0 Anion Gap (3-11) mmol/L 8.0 BUN (7-18) mg/dL 89 H* Creatinine (0.70-1.30) mg/dL 2.87 H Estimated GFR/1.73 m2 (mL/min/1.73m2) 21.46 Glucose (74-106) mg/dL 114 H Calcium (8.5-10.1) mg/dL 9.5 Magnesium (1.8-2.4) mg/dL 2.7 H Total Bilirubin (0.2-1.0) mg/dL 0.7 AST (15-37) U/L 22 ALT (16-63) U/L 26 Alkaline Phosphatase (46-116) U/L 81 Troponin I (<0.06) ng/Ml < 0.05 NT-Pro-B Natriuret Pep (<300) pg/mL 4476 H Total Protein (6.4-8.2) g/dL 6.9 Albumin (3.4-5.0) g/dL 3.7 Procalcitonin ng/mL Range/Units 04/28/19 09:12 WBC (4.4-10.8) k/cumm RBC (4.50-6.00) m/cumm Hgb (13.5-17.5) g/dL Hct (40.0-50.0) % MCV (80-95) fL MCH (27.0-33.0) pg MCHC (32.0-36.0) g/dL RDW (11.8-14.1) % Plt Count (130-400) x1000/uL MPV (8.0-11.0) fL Immature Gran % % Neutrophils % Lymphocytes % Monocytes % Eosinophils % Basophils % Absolute Neutrophils (1.2-6.7) k/cumm Absolute Lymphocytes (1.2-3.4) k/cumm Absolute Monocytes (0.11-0.7) k/cumm Absolute Eosinophils (0.0-0.7) k/cumm Absolute Basophils (0.0-0.2) k/cumm Sodium (136-145) mmol/L Potassium (3.5-5.1) mmol/L Chloride (98-107) mmol/L Carbon Dioxide (21.0-32.0) mmol/L Anion Gap (3-11) mmol/L BUN (7-18) mg/dL Creatinine (0.70-1.30) mg/dL Estimated GFR/1.73 m2 (mL/min/1.73m2) Glucose (74-106) mg/dL Calcium (8.5-10.1) mg/dL Magnesium (1.8-2.4) mg/dL Total Bilirubin (0.2-1.0) mg/dL AST (15-37) U/L ALT (16-63) U/L Alkaline Phosphatase (46-116) U/L Troponin I (<0.06) ng/Ml NT-Pro-B Natriuret Pep (<300) pg/mL Total Protein (6.4-8.2) g/dL Albumin (3.4-5.0) g/dL Procalcitonin ng/mL 0.9 ECG Data Attestation: I personally reviewed and interpreted this ECG (s) as follows: Interpretation: Rate of 91, sinus, first-degree block. PVCs. Left bundle branch block. No acute change from previous EKG. HPI General Mode of arrival: EMS . Date/Time Provider Initiated Documentation: 04/28/19 09:12 . Limitations to Documentation: no limitations . Information obtained by: patient . HPI Narrative: Patient is a 79-year-old male with a history of CHF, COPD, diabetes, GERD presents from health [facility]hab for shortness of breath and lower extremity edema. Staff in the ED who know patient well states that his lower extremity edema is at his baseline for years. Patient denied any acute complaints on arrival to the ED initially and was noted to be singing per EMS staff when they picked him up. Patient did also initially denied cough, fever, chest pain, vomiting. He then stated he does have a cough with green sputum. He admits to some decrease in appetite. Related Data Home Medications Medication Instructions Recorded Confirmed Fleet Enema 118 ml ME PRN PRN 04/18/19 04/29/19 albuterol sulfate PRN 04/18/19 allopurinol 150 mg PO DAILY 04/18/19 04/29/19 amlodipine 10 mg PO DAILY 04/18/19 04/29/19 aspirin [Aspir-Low] 81 mg DAILY 04/18/19 04/29/19 bisacodyl [Dulcolax (bisacodyl)] 10 mg ME PRN PRN 04/18/19 04/29/19 chlorthalidone 25 mg PO BID 04/18/19 04/29/19 doxazosin 1 mg DAILY 04/18/19 04/28/19 doxazosin 1 mg PO DAILY 04/18/19 04/29/19 ergocalciferol (vitamin D2) 1,250 mcg PO DAILY 04/18/19 04/29/19 ferrous sulfate 325 mg DAILY 04/18/19 04/29/19 furosemide [Lasix] 20 mg DAILY 04/18/19 04/18/19 insulin glargine 16 unit SUBCUT DAILY 04/18/19 04/28/19 isosorbide mononitrate mg PO DAILY 04/18/19 labetalol 100 mg BID 04/18/19 04/28/19 losartan 100 mg DAILY 04/18/19 04/28/19 magnesium hydroxide [Milk of PRN 04/18/19 Magnesia] olodaterol 2.5 INHALATION 04/18/19 omeprazole 20 mg DAILY 04/18/19 04/28/19 pravastatin 40 mg DAILY 04/18/19 04/28/19 acetaminophen 650 mg PO Q8H PRN 04/28/19 04/29/19 Allergies Allergy/AdvReac Type Severity Reaction Status Date / Time citalopram Allergy Unknown Unverified 04/29/19 10:29 spironolactone Allergy Unknown Unverified 04/29/19 10:29 General Stated Complaint: RespSymp ALBINA: 4 Review of Systems All systems reviewed & are unremarkable except as noted in HPI and below Constitutional Constitutional: Reports as per HPI, Denies chills and Denies fever(s) Eyes Eyes: Denies blurry vision ENT Ears, Nose, Mouth, and Throat: Denies dizziness, Denies sore throat and Denies throat swelling Cardiovascular Cardiovascular: Denies chest pain and Reports dyspnea Respiratory Respiratory: Reports cough and Reports dyspnea Gastrointestinal Gastrointestinal: Denies abdominal pain, Denies diarrhea and Denies vomiting Genitourinary Genitourinary: Denies hematuria and Denies dysuria Musculoskeletal Musculoskeletal: Denies back pain and Denies numbness Integumentary/Breasts Skin/Breast: Denies lesions and Denies rash Neurologic Neurologic: Denies dizziness, Denies localized weakness and Denies numbness Allergic/Immunologic Allergic/Immunologic: Denies throat swelling [facility] Medical History (Updated 04/28/19 @ 10:11 by Angeline Xiong DO) COPD (chronic obstructive pulmonary disease) (Chronic) Depression (Chronic) Diabetes mellitus (Chronic) GERD (gastroesophageal reflux disease) (Chronic) Gout (Chronic) Hernia (Chronic) High cholesterol (Chronic) Renal failure (Chronic) Renal insufficiency (Chronic) Social History Smoking/Tobacco Use Status: Never Alcohol Intake: never Drug use: Never Substance use type: does not use Do you feel safe at home: Yes Do you feel safe in your relationship?: Yes Exam Const General: cooperative, healthy appearing and no acute distress HENMT Head: normal to inspection Face and sinus: normal facial exam Eyes General: appearance normal, both eyes and all related structures EOM: EOM intact bilaterally Neck Neck: normal visual inspection and No submandibular swelling Lymphatic: no lymphadenopathy noted Chest Chest: normal inspection of the chest and no tenderness Resp Effort & Inspection: normal respiratory effort, able to speak in complete sentences and audible wheezes Auscultation: crackles on the left at the base, diminished lung sounds bilaterally in the lower lung [place] and wheezes scattered wheezes Cardio Rate: regular rate Rhythm: regular rhythm GI Inspection: normal to inspection Palpation: soft, not firm, not rigid and nontender Auscultation: normal bowel sounds Skin General skin exam: no rashes or lesions noted Neuro General: patient alert, patient awake, patient oriented x3 and moves all extremities Cognition: normal cognition Speech: abnormal speech stuttering (baseline) Motor: muscle tone normal throughout Sensory Exam: no sensory deficits noted Extrem General: normal to inspection, full ROM, capillary refill normal, no calf tenderness bilaterally and edema Laterality: bilateral (2+ pitting) Psych Appearance: grossly normal Mental Status: mental status grossly normal Speech and Movement: speech and movement normal Affect: normal affect Course Vital Signs Vital signs: Vital Signs Temperature 98.1 F 04/28/19 08:47 Pulse 69 04/28/19 08:47 Blood Pressure 153/58 H 04/28/19 08:47 Pulse Oximetry 98 04/28/19 08:47 Temperature 98.1 F 04/28/19 08:47 Temperature Source Temporal Artery Scan 04/28/19 08:47 Pulse 69 04/28/19 08:47 Respiratory Effort 04/28/19 08:51 Respiratory Depth Normal 03/19/20 08:51 Blood Pressure 153/58 H 04/28/19 08:47 Blood Pressure Position Sitting 04/28/19 08:47 Pulse Oximetry 98 04/28/19 08:47 Oxygen Delivery Method Room Air 04/28/19 08:47 Oxygen Flow Rate 0 04/28/19 08:47
[2019-04-28] MEDS: Albuterol/Ipratropium 3 ML UPD VIAL UPD (09:17)
[2019-04-28 09:29] LABS: Abs Immature Grans 0.01 k/cumm (0.0-0.09); Absolute Basophil Count 0.02 k/cumm (0.0-0.2); Absolute Lymphocyte Count 0.82 k/cumm (1.2-3.4); Absolute Monocyte Count 0.38 k/cumm (0.11-0.7); Absolute Neutrophil Count 3.49 k/cumm (1.2-6.7); Basophils % 0.4; Eosinophils % 2.1; HCT 23.6 % (40.0-50.0); HGB 7.2 g/dL (13.5-17.5); Immature Grans % 0.2 %; Mean Corp. HGB Concentration 30.5 g/dL (32.0-36.0); Mean Corpuscular Hemoglobin 30.1 pg (27.0-33.0); Mean Corpuscular Volume 98.7 fL (80-95); Mean Platelet Volume 11.1 fL (8.0-11.0); Monocytes % 7.9; Neutrophils % 72.4; Platelet Count 148 x1000/uL (130-400); RBC 2.39 m/cumm (4.50-6.00); RBC Distribution Width 14.1 % (11.8-14.1); White Blood Cell Count 4.82 k/cumm (4.4-10.8)
[2019-04-28 09:43] LABS: ALT 26 U/L (16-63); AST 22 U/L (15-37); Albumin 3.7 g/dL (3.4-5.0); Alkaline Phosphatase 81 U/L (46-116); Bilirubin, Total 0.7 mg/dL (0.2-1.0); CREATININE 2.87 mg/dL (0.70-1.30); Calcium 9.5 mg/dL (8.5-10.1); Chloride 109 mmol/L (98-107); Estimated GFR 21.46 (mL/min/1.73m2); Glucose 114 mg/dL (74-106); Magnesium 2.7 mg/dL (1.8-2.4); Potassium 3.4 mmol/L (3.5-5.1); Sodium 147 mmol/L (136-145); Total Protein 6.9 g/dL (6.4-8.2); Troponin I < 0.05 ng/Ml (<0.06)
[2019-04-28 09:44] LABS: BUN 89 mg/dL (7-18)
[2019-04-28 09:46] LABS: NT-proBNP 4476 pg/mL (<300)
[2019-04-28] MEDS: Furosemide 20 MG TAB (09:55)
[2019-04-28 10:39] LABS: Procalcitonin 0.9 ng/mL
== END 2019-04-28 10:41 | disposition home or self-care (01) ==
PROVIDERS: Emergency Provider Physician Assistant; PCP Student in an Organized Health Care Education/Training Program
DX: I50.23 Acute on chronic systolic (congestive) heart failure (principal); R60.9 Edema, unspecified; J44.9 Chronic obstructive pulmonary disease, unspecified; E11.9 Type 2 diabetes mellitus without complications; Z79.4 Long term (current) use of insulin
CPT/HCPCS: 36415; 80053; 84145; 93005; 94640; 99284; 71046; 83735; 83880; 84484; 85025; 93010; J7620

== ENCOUNTER 2019-04-29 09:39 | Inpatient (IN) | payer OTHER, SELFPAY ==
[2019-04-29] VITALS (132 sets, daily range): BP systolic 126–165; BP diastolic 34–145; PULSE 51–106; RESP 2–29; TEMP 36.5–36.8; O2SAT 85–99
--- NOTE | 2019-04-29 09:45 | DI.CT_ITS ---
EXAM: CT HEAD WO CLINICAL HISTORY: altered mental status, r/o acute disease TECHNIQUE: COMPARISON: CT HEAD WO from 04/18/2019 FINDINGS: Noncontrast cranial CT was performed. There is moderate generalized cerebral atrophy. No evidence o f acute intracranial hemorrhage, mass effect or midline shift. The orbital and temporal bone structu res appear intact. Visualized mastoid air cells and paranasal sinuses are clear. IMPRESSION: No evidence of acute process.
--- NOTE | 2019-04-29 09:45 | DI.RAD_ITS ---
EXAM: XR CHEST 2V PA LATERAL CLINICAL HISTORY: sob, h/o chf, r/o worsening pulm edema TECHNIQUE: COMPARISON: XR CHEST 2V PA LATERAL from 04/28/2019 FINDINGS: Examination is compared to yesterday's AP and lateral chest radiographs. Note is again made of bilat eral pleural effusions and bilateral diffuse/patchy intrapulmonary infiltrates. Findings are mildly worsened in comparison with yesterday's examination. Findings remain consistent with CHF, superimpos ed pneumonia not excluded on basis of this examination. Please correlate clinically. IMPRESSION:
--- NOTE | 2019-04-29 09:46 | ED.GENADUL_ITS ---
Discharge Plan Disposition Patient Disposition: [facility] INPATIENT Condition: Fair Discharge Details Chief Complaint: AMS/LOC Clinical Impression: Acute on chronic systolic CHF (congestive heart failure), Altered mental status, Hypercarbia Admit Date/Time: 04/29/19 11:18 Admit Provider: Norah Knutson Attending Provider: Norah Knutson Primary Care Provider: Dana Klein ED Provider: Angeline Xiong Discharge Data Discharge Date/Time-TO BE ENTERED AT DEPARTURE: 04/29/19 13:07 Medical Decision Making 0940 -- 79-year-old male with a history of COPD, CHF, diabetes who presents from [facility] and rehab for hypoxia in the 80s, worsening leg edema, and altered mental status this morning. Patient is chronically on 2 L of O2. Patient was seen here yesterday and found to have acute on chronic CHF and discharged with plan to increase his Lasix from 20 to 40 mg daily. Patient was alert and conversive and requesting to leave yesterday. On arrival to ED, he is obtunded and not answering questions. Fingerstick glucose 194. His vitals are within normal limits. His oxygen is 99% on 4 L nasal cannula. He has labored breathing with good air movement in upper lobes but with crackles in bases bilaterally. He has 2+ pitting lower extremity edema. He has scrotal edema which is chronic. EKG on arrival notes a rate of 60, sinus, PVCs, left bundle branch block and no acute change from previous. Patient's records note that he is a full code. Although patient has diminished GCS, suspect respiratory etiology and will start BiPAP. Patient referred for stat CT head which was negative. Chest x-ray appears to note worsening acute CHF. 80 mg Lasix IV ordered. Screening labs, urinalysis and Tuttle ordered. 1045 -- ABG noted pH of 7.24, PCO2 71, PO2 61, on BiPAP. Suspect depressed mental status due to hypercarbia. Patient reassessed -still unresponsive but breathing appears less labored. 1100 -- labs and imaging reviewed. White blood cell count 7.81. Hemoglobin stable at 7.2. Sodium 150. Creatinine baseline at 2.72. Lactate 0.5. Troponin negative. BNP slightly increased to 4909 from 4476 yesterday. Urinalysis negative. Patient now arousable and able to answer questions. 1115 --Case discussed with hospitalist -accepts patient for admission. This patient's procalcitonin level which resulted after discharge yesterday was 0.9. Although he has normal wbc, no fever, will cover with antibiotics. Would like CT chest. CT chest noted multifocal groundglass opacities concerning for superimposed pneumonia. Patient has had no fever or reported cough so low suspicion for COVID 19 at this time. Patient attempting to remove his BiPAP. Patient is hemodynamically stable. Patient placed on O2 facemask prior to transfer to the floor as he is continually removing his BiPAP. Medical Records Medical records reviewed: Yes I reviewed the patient's medical records. Imaging Data Radiologic Study: Radiologist's impression: CT HEAD WO CLINICAL HISTORY: altered mental status, r/o acute disease TECHNIQUE: COMPARISON: CT HEAD WO from 04/18/2019 FINDINGS: Noncontrast cranial CT was performed. There is moderate generalized cerebral atrophy. No evidence of acute intracranial hemorrhage, mass effect or midline shift. The orbital and temporal bone structures appear intact. Visualized mastoid air cells and paranasal sinuses are clear. IMPRESSION: No evidence of acute process. XR CHEST 2V PA LATERAL CLINICAL HISTORY: sob, h/o chf, r/o worsening pulm edema TECHNIQUE: COMPARISON: XR CHEST 2V PA LATERAL from 04/28/2019 FINDINGS: Examination is compared to yesterday's AP and lateral chest radiographs. Note is again made of bilateral pleural effusions and bilateral diffuse/patchy intrapulmonary infiltrates. Findings are mildly worsened in comparison with yesterday's examination. Findings remain consistent with CHF, superimposed pneumonia not excluded on basis of this examination. Please correlate clinically. CT CHEST WO CLINICAL HISTORY: shortness of breath, chf, assess for consolidation TECHNIQUE: Noncontrast CT examination of the chest was performed. COMPARISON: No exams were available for comparison FINDINGS: Images obtained through the upper abdomen show unremarkable appearance of visualized portions of liver, spleen, kidneys and pancreas. Note is made of cholelithiasis. There are large bilateral pleural effusions as noted on multiple prior examinations. Heart is enlarged. There are mild diffuse pulmonary interstitial changes consistent with CHF. There are superimposed areas of ground-glass to consolidative opacity with lobulated appearance in the upper lobes bilaterally, there are also some areas of bilateral focal consolidation in the lower lobes, particularly peripherally on the left. Areas of atelectasis are noted bilaterally in the lung bases associated with the pleural effusions, additional consolidation may be present. No gross mediastinal or hilar adenopathy noted. Conclusion: CHF with large bilateral pleural effusions. There are superimposed areas of focal consolidation and ground-glass opacities, multifocal, as described above, possibility of superimposed pneumonia is raised. Clinical suspicion of Covid in this patient was present, the findings as described are consistent with Covid infection but are nonspecific for this diagnosis. Lab Data Lab results reviewed: Yes I reviewed the patient's lab results. Labs: Laboratory Tests Range/Units 04/29/19 04/29/19 04/29/19 10:32 10:35 10:35 WBC (4.4-10.8) k/cumm 7.81 D RBC (4.50-6.00) m/cumm 2.41 L Hgb (13.5-17.5) g/dL 7.2 L Hct (40.0-50.0) % 24.0 L MCV (80-95) fL 99.6 H MCH (27.0-33.0) pg 29.9 MCHC (32.0-36.0) g/dL 30.0 L RDW (11.8-14.1) % 14.0 Plt Count (130-400) x1000/uL 159 MPV (8.0-11.0) fL 10.4 Immature Gran % % 0.1 Neutrophils % 91.3 Lymphocytes % 5.5 Monocytes % 2.7 Eosinophils % 0.1 Basophils % 0.3 Absolute Neutrophils (1.2-6.7) k/cumm 7.13 H Absolute Lymphocytes (1.2-3.4) k/cumm 0.43 L Absolute Monocytes (0.11-0.7) k/cumm 0.21 Absolute Eosinophils (0.0-0.7) k/cumm 0.01 Absolute Basophils (0.0-0.2) k/cumm 0.02 ABG Sample Site Left radial ABG pH (7.35-7.45) 7.24 L ABG pCO2 (34-47) mmHg 71 H* ABG pO2 (83-108) mmHg 61 L ABG HCO3 (22-28) mmol/L 30 H ABG Total CO2 (22-29) mmol/L 30 H ABG O2 Saturation (94-98) % 89 L ABG Base Excess (-3-3) mmol/L 2.8 Oxygen Liter Flow L 12/6 30% FiO2 % 30 Sodium (136-145) mmol/L 150 H Potassium (3.5-5.1) mmol/L 3.7 Chloride (98-107) mmol/L 110 H Carbon Dioxide (21.0-32.0) mmol/L 32.0 Anion Gap (3-11) mmol/L 8.0 BUN (7-18) mg/dL 91 H* Creatinine (0.70-1.30) mg/dL 2.72 H Estimated GFR/1.73 m2 (mL/min/1.73m2) 22.83 Glucose (74-106) mg/dL 176 H Lactate (0.6-1.4) mmol/L Calcium (8.5-10.1) mg/dL 9.6 Magnesium (1.8-2.4) mg/dL 2.7 H Total Bilirubin (0.2-1.0) mg/dL 0.6 AST (15-37) U/L 33 ALT (16-63) U/L 39 Alkaline Phosphatase (46-116) U/L 85 Troponin I (<0.06) ng/Ml < 0.05 NT-Pro-B Natriuret Pep (<300) pg/mL Total Protein (6.4-8.2) g/dL 7.1 Albumin (3.4-5.0) g/dL 3.8 Urine Color (Yellow) Urine Clarity (Clear) Urine pH (5-8) Ur Specific [place] (1.005-1.025) Urine Protein (Negative) mg/dL Urine Ketones (Negative) mg/dL Urine Blood (Negative) Urine Nitrite (Negative) Urine Bilirubin (Negative) Urine Urobilinogen (Up TO 0.2) EU/dL Ur Leukocyte Esterase (Negative) Urine Glucose (Negative) mg/dL Range/Units 04/29/19 04/29/19 04/29/19 10:35 10:35 10:45 WBC (4.4-10.8) k/cumm RBC (4.50-6.00) m/cumm Hgb (13.5-17.5) g/dL Hct (40.0-50.0) % MCV (80-95) fL MCH (27.0-33.0) pg MCHC (32.0-36.0) g/dL RDW (11.8-14.1) % Plt Count (130-400) x1000/uL MPV (8.0-11.0) fL Immature Gran % % Neutrophils % Lymphocytes % Monocytes % Eosinophils % Basophils % Absolute Neutrophils (1.2-6.7) k/cumm Absolute Lymphocytes (1.2-3.4) k/cumm Absolute Monocytes (0.11-0.7) k/cumm Absolute Eosinophils (0.0-0.7) k/cumm Absolute Basophils (0.0-0.2) k/cumm ABG Sample Site ABG pH (7.35-7.45) ABG pCO2 (34-47) mmHg ABG pO2 (83-108) mmHg ABG HCO3 (22-28) mmol/L ABG Total CO2 (22-29) mmol/L ABG O2 Saturation (94-98) % ABG Base Excess (-3-3) mmol/L Oxygen Liter Flow L FiO2 % Sodium (136-145) mmol/L Potassium (3.5-5.1) mmol/L Chloride (98-107) mmol/L Carbon Dioxide (21.0-32.0) mmol/L Anion Gap (3-11) mmol/L BUN (7-18) mg/dL Creatinine (0.70-1.30) mg/dL Estimated GFR/1.73 m2 (mL/min/1.73m2) Glucose (74-106) mg/dL Lactate (0.6-1.4) mmol/L 0.5 L Calcium (8.5-10.1) mg/dL Magnesium (1.8-2.4) mg/dL Total Bilirubin (0.2-1.0) mg/dL AST (15-37) U/L ALT (16-63) U/L Alkaline Phosphatase (46-116) U/L Troponin I (<0.06) ng/Ml NT-Pro-B Natriuret Pep (<300) pg/mL 4909 H Total Protein (6.4-8.2) g/dL Albumin (3.4-5.0) g/dL Urine Color (Yellow) Yellow Urine Clarity (Clear) Clear Urine pH (5-8) 5.5 Ur Specific [place] (1.005-1.025) 1.025 Urine Protein (Negative) mg/dL Negative Urine Ketones (Negative) mg/dL Negative Urine Blood (Negative) Negative Urine Nitrite (Negative) Negative Urine Bilirubin (Negative) Negative Urine Urobilinogen (Up TO 0.2) EU/dL 0.2 Ur Leukocyte Esterase (Negative) Negative Urine Glucose (Negative) mg/dL Negative ECG Data Attestation: I personally reviewed and interpreted this ECG (s) as follows: Interpretation: Rate of 68, sinus, frequent PVCs. Left bundle branch block. No acute ischemic changes. No acute change from previous EKGs. HPI General Mode of arrival: EMS . Date/Time Provider Initiated Documentation: 04/29/19 10:03 . Limitations to Documentation: altered mental status . Information obtained by: EMS . HPI Narrative: Patient is a 79-year-old male with a history of COPD, CHF, depression, diabetes who presents for hypoxia, worsening leg swelling, and altered mental status this morning. Patient was in the ED yesterday for leg swelling, shortness of breath and hypoxia but was discharged back to the rehab with plan for increase in his Lasix due to findings of CHF on chest x-ray. Patient is normally awake and alert and conversive. Patient has not been answering questions per rehab and EMS this morning. On arrival to ED, patient unable to answer questions. Related Data Home Medications Medication Instructions Recorded Confirmed Fleet Enema 118 ml [place] PRN PRN 04/18/19 04/29/19 albuterol sulfate 2.5 mg INHALATION PRN PRN 04/18/19 04/29/19 allopurinol 150 mg PO DAILY 04/18/19 04/29/19 amlodipine 10 mg PO DAILY 04/18/19 04/29/19 aspirin [Aspir-Low] 81 mg DAILY 04/18/19 04/29/19 bisacodyl [Dulcolax (bisacodyl)] 10 mg [place] PRN PRN 04/18/19 04/29/19 chlorthalidone 25 mg PO BID 04/18/19 04/29/19 doxazosin 1 mg PO DAILY 04/18/19 04/29/19 ergocalciferol (vitamin D2) 1,250 mcg PO QWEEK 04/18/19 04/29/19 furosemide [Lasix] 40 mg PO DAILY 04/18/19 04/29/19 insulin glargine 12 unit SUBCUT DAILY 04/18/19 04/29/19 isosorbide mononitrate 60 mg PO DAILY 04/18/19 04/29/19 labetalol 300 mg PO BID 04/18/19 04/29/19 losartan 100 mg PO DAILY 04/18/19 04/29/19 magnesium hydroxide [Milk of 30 ml PO PRN PRN 04/18/19 04/29/19 Magnesia] olodaterol 2 inh INHALATION DAILY 04/18/19 04/29/19 omeprazole 20 mg PO DAILY 04/18/19 04/29/19 pravastatin 40 mg PO HS 04/18/19 04/29/19 acetaminophen 650 mg PO Q8H PRN 04/28/19 04/29/19 albuterol sulfate 2 inh INHALATION Q4H PRN PRN 04/29/19 04/29/19 Allergies Allergy/AdvReac Type Severity Reaction Status Date / Time citalopram Allergy Unknown Unverified 04/29/19 10:29 spironolactone Allergy Unknown Unverified 04/29/19 10:29 General ALBINA: 4 Review of Systems Unobtainable due to mental status [facility] Medical History (Updated 04/29/19 @ 14:02 by Norah Knutson MD) Chronic combined systolic and diastolic CHF (congestive heart failure) (Acute) COPD (chronic obstructive pulmonary disease) (Chronic) Depression (Chronic) Diabetes mellitus (Chronic) GERD (gastroesophageal reflux disease) (Chronic) Gout (Chronic) Hernia (Chronic) High cholesterol (Chronic) Renal failure (Chronic) Renal insufficiency (Chronic) Surgical History (Updated 04/29/19 @ 13:52 by Norah Knutson MD) Surgical history unknown (Inactive) Family History (Updated 04/29/19 @ 13:52 by Norah Knutson MD) Other Family history unobtainable Social History Smoking/Tobacco Use Status: Never Alcohol Intake: never Drug use: Never Substance use type: does not use Do you feel safe at home: Yes Do you feel safe in your relationship?: Yes Exam Const General: ill appearing chronically Orientation: obtunded HENNY Head: normal to inspection Ears: hearing grossly normal bilaterally and external ears normal General nose exam: external nose normal Face and sinus: normal facial exam Mouth: mucous membranes dry Eyes General: appearance normal, both eyes and all related structures Eyelids: eyelids normal Neck Neck: normal visual inspection Lymphatic: no lymphadenopathy noted Chest Chest: normal inspection of the chest Resp Effort & Inspection: labored Auscultation: crackles bilaterally at the base and wheezes scattered wheezes Cardio Rate: regular rate Rhythm: regular rhythm GI Inspection: normal to inspection Palpation: soft, not firm, no guarding, no hepatosplenomegaly, no masses and nontender Auscultation: normal bowel sounds Skin General skin exam: no rashes or lesions noted Neuro General: patient obtunded Extrem General: edema Laterality: bilateral (2+ pitting) Psych Appearance: grossly normal
[2019-04-29 10:34] LABS: BE 2.8 mmol/L (-3-3); HCO3 30 mmol/L (22-28); pH 7.24 (7.35-7.45); pO2 61 mmHg (83-108); sO2 89 % (94-98); tCO2 30 mmol/L (22-29)
[2019-04-29] MEDS: Furosemide 100 MG/10 ML VIAL 80 MG IVP (10:36)
[2019-04-29 10:37] LABS: FIO2 30 %; Site Left Radial; pCO2 71 mmHg (34-47)
[2019-04-29 10:42] LABS: Abs Immature Grans 0.01 k/cumm (0.0-0.09); Absolute Basophil Count 0.02 k/cumm (0.0-0.2); Absolute Eosinophil Count 0.01 k/cumm (0.0-0.7); Absolute Lymphocyte Count 0.43 k/cumm (1.2-3.4); Absolute Monocyte Count 0.21 k/cumm (0.11-0.7); Absolute Neutrophil Count 7.13 k/cumm (1.2-6.7); Basophils % 0.3; Eosinophils % 0.1; HGB 7.2 g/dL (13.5-17.5); Immature Grans % 0.1 %; Lymphocytes % 5.5; Mean Corpuscular Hemoglobin 29.9 pg (27.0-33.0); Mean Corpuscular Volume 99.6 fL (80-95); Mean Platelet Volume 10.4 fL (8.0-11.0); Monocytes % 2.7; Neutrophils % 91.3; Platelet Count 159 x1000/uL (130-400); RBC 2.41 m/cumm (4.50-6.00); White Blood Cell Count 7.81 k/cumm (4.4-10.8)
[2019-04-29 10:43] LABS: Lactate 0.5 mmol/L (0.6-1.4)
[2019-04-29] MEDS: Albuterol/Ipratropium 3 ML UPD VIAL (10:47)
[2019-04-29 11:08] LABS: ALT 39 U/L (16-63); AST 33 U/L (15-37); Albumin 3.8 g/dL (3.4-5.0); Alkaline Phosphatase 85 U/L (46-116); Bilirubin, Total 0.6 mg/dL (0.2-1.0); CREATININE 2.72 mg/dL (0.70-1.30); Calcium 9.6 mg/dL (8.5-10.1); Chloride 110 mmol/L (98-107); Estimated GFR 22.83 (mL/min/1.73m2); Glucose 176 mg/dL (74-106); Magnesium 2.7 mg/dL (1.8-2.4); Potassium 3.7 mmol/L (3.5-5.1); Sodium 150 mmol/L (136-145); Total Protein 7.1 g/dL (6.4-8.2); Troponin I < 0.05 ng/Ml (<0.06)
[2019-04-29 11:10] LABS: BUN 91 mg/dL (7-18)
--- NOTE | 2019-04-29 11:15 | DI.CT_ITS ---
EXAM: CT CHEST WO CLINICAL HISTORY: shortness of breath, chf, assess for consolidation TECHNIQUE: Noncontrast CT examination of the chest was performed. COMPARISON: No exams were available for comparison FINDINGS: Images obtained through the upper abdomen show unremarkable appearance of visualized portions of live r, spleen, kidneys and pancreas. Note is made of cholelithiasis. There are large bilateral pleural effusions as noted on multiple prior examinations. Heart is enlarg ed. There are mild diffuse pulmonary interstitial changes consistent with CHF. There are superimposed areas of ground-glass to consolidative opacity with lobulated appearance in th e upper lobes bilaterally, there are also some areas of bilateral focal consolidation in the lower lo bes, particularly peripherally on the left. Areas of atelectasis are noted bilaterally in the lung b ases associated with the pleural effusions, additional consolidation may be present. No gross medias tinal or hilar adenopathy noted. Conclusion: CHF with large bilateral pleural effusions. There are superimposed areas of focal consol idation and ground-glass opacities, multifocal, as described above, possibility of superimposed pneum onia is raised. Clinical suspicion of Covid in this patient was present, the findings as described a re consistent with Covid infection but are nonspecific for this diagnosis.
[2019-04-29 11:17] LABS: NT-proBNP 4909 pg/mL (<300)
[2019-04-29 11:34] LABS: Bilirubin Negative (Negative); Blood Negative (Negative); Clarity Clear (Clear); Glucose Negative (Negative); Ketones Negative (Negative); Leukocyte Esterase Negative (Negative); Nitrite Negative (Negative); Specific Gravity 1.025 (1.005-1.025); Urobilinogen 0.2 EU/dL (Up TO 0.2); pH 5.5 (5-8)
[2019-04-29] MEDS: CEFEPIME 2 GM in Normal Saline 100 ML IVPB ×2 (11:41→18:07)
[2019-04-29] MEDS: VANCOMYCIN 1,000 MG in Normal Saline 250 ML 250 MG IV (12:37)
--- NOTE | 2019-04-29 13:44 | W.PM.HP.N ---
Date of service: 04/29/19 Time of Service: 13:45 Assessment and Plan Assessment and plan (1) Acute on chronic respiratory failure with hypoxia and hypercapnia: Status: Acute Assessment and plan: Appears to be due to CHF predominantly. I do not get the impression that his COPD is in acute exacerbation. I do think that fentanyl patch is contributing to mental status and CO2 retention. Continue BiPAP, diurese, measure strict I/O's, daily weights. Obtain echo given the SUSAN. (2) Acute on chronic combined systolic and diastolic CHF (congestive heart failure): Status: Acute Assessment and plan: As above (3) Respiratory acidosis: Status: Acute Assessment and plan: As above (4) Toxic metabolic encephalopathy: Status: Acute Assessment and plan: As above (5) Diabetes mellitus: Status: Chronic Assessment and plan: Cover with SSI q6h while NPO. Hold long acting insulin (6) Discharge planning issues: Status: Acute Assessment and plan: Full code Admit to ICU. Total Critical Care Time 1 hour (7) DVT prophylaxis: Status: Acute Assessment and plan: heparin SC History of Present Illness History of Present Illness Chief Complaint: altered mental status Narrative: Mr Ibrahim is a 79 year old male with PMHx of COPD, chronic combined systolic and diastolic CHF, CKD stage III, IDDM2 who was sent to [facility] ED today from [facility] obtunded. He was found to be frankly fluid overloaded and to have respiratory acidosis with pH of 7.24, pCO2 of 71, pO2 of 61. He was placed on BiPAP and treated with 80 mg of IV lasix. Of note, his fentanyl patch is on his right shoulder at the time of admission. The patient was seen at [facility] ED on 04/18/2019 for anemia after a fall, as well as on 04/28/2019 for CHF exacerbation and sent back to [facility] with increased dose of lasix. On my evaluation, the patient is initially of BiPAP with increased work of breathing. He is awake and knows his name, but does not know where he is. He was placed on BiPAP again in the ICU. He is difficult to arouse now and not answering questions. His CT of the chest is pending. CXR is suggestive of worsening CHF and possible bacterial pneumonia. He has been afebrile. Review of Systems Unobtainable due to mental status [facility] Medical History (Updated 04/29/19 @ 14:02 by Norah Knutson MD) Chronic combined systolic and diastolic CHF (congestive heart failure) (Acute) COPD (chronic obstructive pulmonary disease) (Chronic) Depression (Chronic) Diabetes mellitus (Chronic) GERD (gastroesophageal reflux disease) (Chronic) Gout (Chronic) Hernia (Chronic) High cholesterol (Chronic) Renal failure (Chronic) Renal insufficiency (Chronic) Surgical History (Updated 04/29/19 @ 13:52 by Norah Knutson MD) Surgical history unknown (Inactive) Family History (Updated 04/29/19 @ 13:52 by Norah Knutson MD) Other Family history unobtainable Social History Smoking/Tobacco Use Status: Never Alcohol Intake: never Drug use: Never Substance use type: does not use Do you feel safe at home: Yes Do you feel safe in your relationship?: Yes Meds Home Medications and Allergies Home Medications Medication Instructions Recorded Confirmed Type Fleet Enema 118 ml [place] PRN PRN 04/18/19 04/29/19 History albuterol sulfate 2.5 mg INHALATION PRN PRN 04/18/19 04/29/19 History allopurinol 150 mg PO DAILY 04/18/19 04/29/19 History amlodipine 10 mg PO DAILY 04/18/19 04/29/19 History aspirin [Aspir-Low] 81 mg DAILY 04/18/19 04/29/19 History bisacodyl [Dulcolax (bisacodyl)] 10 mg [place] PRN PRN 04/18/19 04/29/19 History chlorthalidone 25 mg PO BID 04/18/19 04/29/19 History doxazosin 1 mg PO DAILY 04/18/19 04/29/19 History ergocalciferol (vitamin D2) 1,250 mcg PO DAILY 04/18/19 04/29/19 History furosemide [Lasix] 40 mg PO DAILY 04/18/19 04/29/19 History insulin glargine 12 unit SUBCUT DAILY 04/18/19 04/29/19 History isosorbide mononitrate 60 mg PO DAILY 04/18/19 04/29/19 History labetalol 300 mg PO BID 04/18/19 04/29/19 History losartan 100 mg PO DAILY 04/18/19 04/29/19 History magnesium hydroxide [Milk of 30 ml PO PRN PRN 04/18/19 04/29/19 History Magnesia] olodaterol 2 inh INHALATION DAILY 04/18/19 04/29/19 History omeprazole 20 mg PO DAILY 04/18/19 04/29/19 History pravastatin 40 mg PO HS 04/18/19 04/29/19 History acetaminophen 650 mg PO Q8H PRN 04/28/19 04/29/19 History albuterol sulfate 2 inh INHALATION Q4H PRN PRN 04/29/19 04/29/19 History Allergies Allergy/AdvReac Type Severity Reaction Status Date / Time citalopram Allergy Unknown Unverified 04/29/19 10:29 spironolactone Allergy Unknown Unverified 04/29/19 10:29 Exam Narrative Exam Narrative: General: Elderly male, laying in bed on BiPAP, difficult to arouse, but arousable, A&Ox1 Neuro: no focal deficits, lethargic Psych: difficult to assess given mental status Skin: visible skin intact HEENT: Atraumatic, normocephalic, EOMI when wakes up, MMM, wearing BiPAP, oropharyngeal exam impossible due to this, no submandibular or cervical lymphadenopathy, no goiter or JVD Heart: RRR, + loud SUSAN Lungs: rales at B bases GI: abdomen is soft, nondistended Extremities: 3+ BLE pitting edema. Results Labs Result diagrams: 04/29/19 10:35 04/29/19 10:35 Labs: Laboratory Results - last 24 hr 04/29/19 04/29/19 04/29/19 10:32 10:35 10:35 WBC 7.81 D RBC 2.41 L Hgb 7.2 L Hct 24.0 L MCV 99.6 H MCH 29.9 MCHC 30.0 L RDW 14.0 Plt Count 159 MPV 10.4 Immature Gran % 0.1 Neutrophils % 91.3 Lymphocytes % 5.5 Monocytes % 2.7 Eosinophils % 0.1 Basophils % 0.3 Absolute Neutrophils 7.13 H Absolute Lymphocytes 0.43 L Absolute Monocytes 0.21 Absolute Eosinophils 0.01 Absolute Basophils 0.02 ABG Sample Site Left radial ABG pH 7.24 L ABG pCO2 71 H* ABG pO2 61 L ABG HCO3 30 H ABG Total CO2 30 H ABG O2 Saturation 89 L ABG Base Excess 2.8 Oxygen Liter Flow 12/6 30% FiO2 30 Sodium 150 H Potassium 3.7 Chloride 110 H Carbon Dioxide 32.0 Anion Gap 8.0 BUN 91 H* Creatinine 2.72 H Estimated GFR/1.73 m2 22.83 Glucose 176 H Lactate Calcium 9.6 Magnesium 2.7 H Total Bilirubin 0.6 AST 33 ALT 39 Alkaline Phosphatase 85 Troponin I < 0.05 NT-Pro-B Natriuret Pep Total Protein 7.1 Albumin 3.8 Urine Color Urine Clarity Urine pH Ur Specific [place] Urine Protein Urine Ketones Urine Blood Urine Nitrite Urine Bilirubin Urine Urobilinogen Ur Leukocyte Esterase Urine Glucose 04/29/19 04/29/19 04/29/19 10:35 10:35 10:45 WBC RBC Hgb Hct MCV MCH MCHC RDW Plt Count MPV Immature Gran % Neutrophils % Lymphocytes % Monocytes % Eosinophils % Basophils % Absolute Neutrophils Absolute Lymphocytes Absolute Monocytes Absolute Eosinophils Absolute Basophils ABG Sample Site ABG pH ABG pCO2 ABG pO2 ABG HCO3 ABG Total CO2 ABG O2 Saturation ABG Base Excess Oxygen Liter Flow FiO2 Sodium Potassium Chloride Carbon Dioxide Anion Gap BUN Creatinine Estimated GFR/1.73 m2 Glucose Lactate 0.5 L Calcium Magnesium Total Bilirubin AST ALT Alkaline Phosphatase Troponin I NT-Pro-B Natriuret Pep 4909 H Total Protein Albumin Urine Color Yellow Urine Clarity Clear Urine pH 5.5 Ur Specific [place] 1.025 Urine Protein Negative Urine Ketones Negative Urine Blood Negative Urine Nitrite Negative Urine Bilirubin Negative Urine Urobilinogen 0.2 Ur Leukocyte Esterase Negative Urine Glucose Negative Last Vital Signs Temp 36.5 C 04/29/19 09:39 Pulse 69 04/29/19 12:39 Resp 18 04/29/19 12:39 BP 142/58 H 04/29/19 12:39 Pulse Ox 99 04/29/19 12:39
[2019-04-29 14:57] LABS: Troponin I < 0.05 ng/Ml (<0.06)
[2019-04-29] MEDS: Heparin 5,000 UNITS/ML VIAL 5000 UNITS SC (16:12)
[2019-04-29] MEDS: Furosemide 40 MG/4 ML VIAL IVP (16:12)
[2019-04-29] MEDS: Albuterol/Ipratropium 3 ML UPD VIAL UPD (17:55)
[2019-04-29] MEDS: LORazepam 2 MG/ML VIAL 0.5 MG IVP ×2 (17:56→21:44)
[2019-04-29] MEDS: Normal Saline Flush 10 ML SYR IVP ×2 (17:57→21:46)
[2019-04-29] MEDS: MORPHine 2 MG/ML SYR IVP ×2 (17:57→21:43)
[2019-04-29] MEDS: Insulin Aspart 300 UNITS/3 ML PEN SC (18:25)
--- NOTE | 2019-04-29 22:54 | NUR.NOTE ---
2200- evening po medications held as patient was not oriented and awake enough to swallow safely
[2019-04-30] VITALS (119 sets, daily range): BP systolic 117–152; BP diastolic 40–100; PULSE 54–101; RESP 12–27; TEMP 36–36.8; O2SAT 80–100
--- NOTE | 2019-04-30 | DI.RAD_ITS ---
EXAM: XR PORTABLE CHEST AP POST LINE CLINICAL HISTORY: endotrachial intubation TECHNIQUE: COMPARISON: XR CHEST 2V PA LATERAL from 04/29/2019 FINDINGS: Portable AP chest at 1627 hours, endotracheal tube noted approximately 5.5 cm above the chad. Bila teral diffuse intrapulmonary radiodensities most prominent in the perihilar areas and lower lungs aga in noted, large pleural effusions seen on yesterday's examination are again seen. Little overall sudarshan nge in appearance allowing for differences in technique. IMPRESSION: Little interval change in appearance in patient with CT findings suggesting CHF with superimposed mul tifocal pneumonia. ET tube in place.
[2019-04-30] MEDS: MORPHine 2 MG/ML SYR IVP ×2 (00:16→07:30)
[2019-04-30] MEDS: Heparin 5,000 UNITS/ML VIAL 5000 UNITS SC ×2 (00:18→10:33)
[2019-04-30] MEDS: CEFEPIME 2 GM in Normal Saline 100 ML IVPB ×3 (01:46→18:14)
[2019-04-30 07:01] LABS: Abs Immature Grans 0.05 k/cumm (0.0-0.09); Absolute Basophil Count 0.01 k/cumm (0.0-0.2); Absolute Lymphocyte Count 0.79 k/cumm (1.2-3.4); Absolute Monocyte Count 0.58 k/cumm (0.11-0.7); Absolute Neutrophil Count 7.22 k/cumm (1.2-6.7); Basophils % 0.1; HCT 26.4 % (40.0-50.0); HGB 7.7 g/dL (13.5-17.5); Immature Grans % 0.6 %; Lymphocytes % 9.1; Mean Corp. HGB Concentration 29.2 g/dL (32.0-36.0); Mean Corpuscular Hemoglobin 29.7 pg (27.0-33.0); Mean Corpuscular Volume 101.9 fL (80-95); Mean Platelet Volume 11.5 fL (8.0-11.0); Monocytes % 6.7; Neutrophils % 83.5; Platelet Count 176 x1000/uL (130-400); RBC 2.59 m/cumm (4.50-6.00); RBC Distribution Width 14.1 % (11.8-14.1); White Blood Cell Count 8.65 k/cumm (4.4-10.8)
[2019-04-30 07:28] LABS: Anion Gap 7.4 mmol/L (3-11); CO2 33.6 mmol/L (21.0-32.0); CREATININE 2.61 mg/dL (0.70-1.30); Calcium 9.3 mg/dL (8.5-10.1); Chloride 112 mmol/L (98-107); Estimated GFR 23.95 (mL/min/1.73m2); Ferritin 114 ng/mL (26-388); Glucose 133 mg/dL (74-106); Magnesium 2.6 mg/dL (1.8-2.4); Potassium 3.7 mmol/L (3.5-5.1); Sodium 153 mmol/L (136-145)
--- NOTE | 2019-04-30 07:30 | INITIAL_ITS ---
- If Service Date Differs Date of service: 04/30/19 Time of Service: 09:00 Care Management Initial Assess REASON FOR HOSPITALIZATION:: Acute on chronic respiratory failure, CO2, Narcosis, CHF, PNA PAST MEDICAL HISTORY/PAST SURGICAL HISTORY:: Chronic combined systolic and diastolic CHF, COPD, Depression, DM, GERD, Gout, hernia, high cholesterol, renal failure, renal insufficiency PREVIOUS FUNCTIONAL STATUS/SOCIAL/FAMILY SUPPORTS:: Keith is a resident of [facility]. His and son reside in [place] and are supportive. CURRENT FUNCTIONAL STATUS:: Keith is intubated and transferred to RICU. ADVANCE DIRECTIVES:: Requested from [facility], provided to ICU and faxed to [facility] to include in patient's EMR. CM called [facility] upon transfer who reported they did not have record of recieving the document. Copy remains on patient's physical chart, CM located in scanned documents provided again to [facility] post transfer. Has patient been provided with information about the portal?: No Did the patient sign up for the portal?: No CODE STATUS:: Full Code INSURANCE COVERAGE / FINANCIAL ISSUES:: [employer] CURRENT HOME/COMMUNITY SERVICES/EQUIPMENT:: Resident at SNF: [facility] PRIMARY CARE PHYSICIAN:: Dana Klein POTENTIAL DISCHARGE NEEDS:: Coordinated return to [facility] PATIENT/FAMILY EDUCATION NEEDS:: Review of discharge instructions, discuss Ask Me Three. ANTICIPATED BARRIERS TO DISCHARGE:: None identified. TRANSPORTATION:: Via W/C van. PLAN:: Keith continues to be closely monitored and treated, he transferred from ICU to RICU 04/30/19@1130. CM will follow only if indicated.
[2019-04-30] MEDS: Albuterol/Ipratropium 3 ML UPD VIAL UPD (07:31)
[2019-04-30 07:43] LABS: Vitamin B12 765 pg/mL (193-986)
[2019-04-30 07:44] LABS: Folate > 20.0 ng/mL (8.6-20.0)
[2019-04-30 07:46] LABS: Iron 18 ug/dL (65-175); Total Iron Binding Capacity 236 ug/dL (250-450); Transferrin Sat 8 % (20-55)
[2019-04-30] MEDS: Insulin Aspart 300 UNITS/3 ML PEN SC (07:48)
[2019-04-30 07:52] LABS: BUN 91 mg/dL (7-18)
[2019-04-30 09:30] LABS: BE 2.3 mmol/L (-3-3); HCO3 31 mmol/L (22-28); pO2 80 mmHg (83-108); sO2 95 % (94-98); tCO2 32 mmol/L (22-29)
[2019-04-30 09:32] LABS: pH 7.15 (7.35-7.45)
[2019-04-30 09:33] LABS: FIO2 50% %; Site Left Radial; pCO2 90 mmHg (34-47)
[2019-04-30] MEDS: Normal Saline Flush 10 ML SYR IVP ×2 (10:33→16:35)
[2019-04-30] MEDS: Furosemide 40 MG/4 ML VIAL IVP ×2 (10:33→16:25)
[2019-04-30] MEDS: Pantoprazole 40 MG VIAL IVP (10:38)
[2019-04-30] MEDS: DEXTROSE 5%-WATER 1,000 ML 100 ML IV (11:01)
--- NOTE | 2019-04-30 12:01 | NUR.NOTE ---
Nursing Note:At shift change it was noted that patient's 02 sats were dropping and he was exhibiting increased work of breathing. This nurse administered 2mg morphine, repositioned him to open his airways as much as possible, and administered an updraft. Zuly Quiñonez entered the unit and adjusted the BIPAP settings to 15/6 and 50% fi02. SAts balta to 91%, but patient still exhibiting accessory muscle use and shallow respirations. At approx 0800 MD Elaine in unit for morning rounding. informed of patient's status and this RN requested ABGs be drawn. at approx 0915 ABG results PH 7.15, C02 90, 02 80. and R.T. agree patient should be intubated. Patient's phoned into unit, MD Elaine spoke with , obtained consent for intubation. As [facility], and had a history of contact with [facility] as well, and due to his respiratory status, it was determined he should be treated as a rule out gonzales virus patient and transferred to RICU for intubation. At this time ICU staff and R.T. donned gowns, gloves and surgical masks. At approx 11:15 patient transferred to RICU unit by Zuly, Nurse Director Of Partnerships and transportation economics teacher. Environmental Services contacted. Patient's room wiped down and fogged. ICU med area, front tender area, bathroom, room 221 and every other [address] this RN and RECLAMATION ENGINEER might have touched also thoroughly cleaned and wiped down with bleach wipes.
[2019-04-30 14:01] LABS: BE 4.1 mmol/L (-3-3); HCO3 31 mmol/L (22-28); pH 7.28 (7.35-7.45); pO2 60 mmHg (83-108); sO2 92 % (94-98); tCO2 31 mmol/L (22-29)
[2019-04-30 14:05] LABS: pCO2 66 mmHg (34-47)
[2019-04-30 14:06] LABS: FIO2 35 %; Site Left Radial
[2019-04-30] MEDS: VANCOMYCIN 1,000 MG in Normal Saline 250 ML 250 MG IV (15:08)
[2019-04-30 16:06] LABS: BE 5.8 mmol/L (-3-3); HCO3 32 mmol/L (22-28); pCO2 58 mmHg (34-47); pH 7.35 (7.35-7.45); pO2 62 mmHg (83-108); sO2 94 % (94-98); tCO2 31 mmol/L (22-29)
[2019-04-30 16:08] LABS: Site Left Radial
[2019-04-30 16:09] LABS: FIO2 35 %
[2019-04-30] MEDS: PROPOFOL 1,000 MG/100 ML BTL 25.806 MG IVPB (16:35)
--- NOTE | 2019-04-30 16:43 | DI.VRAD_ITS ---
PROCEDURE INFORMATION: Exam: XR Chest, 1 View Exam date and time: 04/30/2019 4:09 PM Age: 79 years old Clinical indication: Device placement; Ett placement (vent status) TECHNIQUE: Imaging protocol: XR of the chest Views: 1 view. COMPARISON: CR XR CHEST 2V PA LATERAL 04/29/2019 10:20 AM FINDINGS: Interval insertion of endotracheal tube in good position well above the chad. Persistent interstitial lung disease. Bilateral pleural effusions. Mild cardiomegaly. IMPRESSION: Insertion of endotracheal tube in good position with persistent interstitial edema pleural effusions and cardiomegaly most likely representing congestive heart failure. Dictated and Authenticated by: Luis Jacobsen MD. Ordering:GAURAV Deleon MD
[2019-04-30] MEDS: PROPOFOL 1,000 MG/100 ML BTL 30.498 MG IVPB ×2 (17:10→19:30)
--- NOTE | 2019-04-30 17:17 | W.PM.DS.N ---
Date of service: 04/30/19 Time of Service: 17:17 DS: Diagnosis Discharge Diagnosis (1) Acute on chronic respiratory failure with hypoxia and hypercapnia: Status: Acute (2) Acute on chronic combined systolic and diastolic CHF (congestive heart failure): Status: Acute (3) Respiratory acidosis: Status: Acute (4) Toxic metabolic encephalopathy: Status: Acute (5) Diabetes mellitus: Status: Chronic (6) Discharge planning issues: Status: Acute (7) DVT prophylaxis: Status: Acute Discharge Plan Disposition Patient Disposition: [facility] Condition: Critical Discharge Details Chief Complaint: AMS/LOC Clinical Impression: Acute on chronic systolic CHF (congestive heart failure), Altered mental status, Hypercarbia Reason For Visit: ACUTE ON CHRONIC RESP.FAILURE,CO2,NARCOSIS,CHF,PNA Admit Date/Time: 04/29/19 11:18 Admit Provider: Norah Knutson Attending Provider: Norah Knutson Primary Care Provider: Dana Klein ED Provider: Angeline Xiong Hospital Course Hospital Course: 79 yo male with history of congestive heart failure with reduced ejection fraction, chronic anemia, chronic pain on fentanyl patch, COPD, diabetes on insulin, and chronic renal insufficiency who presented after being found obtunded at [facility] this evaluation was consistent with fluid overload and respiratory acidosis with pH of 7.24, PCO2 of 71, and PO2 of 61. Troponin was negative. proBNP was 4909. He was placed on BiPAP and given IV Lasix, fentanyl patch was removed, and he appeared to initially improve. Chest CT was consistent with CHF with large bilateral pleural effusion, but did also note areas of focal consolidation and groundglass opacities. Initial clinical impression was not consistent with COVID, as there is no known exposure in the case look like CHF. History was clarified the patient was at the [facility] from March 21- with a follow-up appointment the following week, but not since April 09. He had no other known exposures at the [facility]. The patient was given 80 mg IV Lasix and responded well to emergency room. He was written for 40 mg IV twice daily, this was increased to 80 mg given clinical worsening despite negative fluid balance of about 1500 mL overnight. He did get started on some D5 water as his sodium was trending up from 148 on admission to 153. Echocardiogram was ordered, but was not available at our hospital. Patient's respiratory failure worsened overnight, with increased work of breathing and respiratory acidosis. Decision was made to intubate the patient and swab for SARS CoV and the sample send to [facility] laboratory. His respiratory acidosis was improving using the vent with ASV setting initially 110% up to 120%. The patient noted to have significant anemia related to recent blood loss. This is been severe, down as low as 7.2 on March 25. It was 7.2 on admission April 25, and 7.7 on day of discharge. Iron studies showed transferring saturation of 8% consistent with iron deficiency. B12 and folate were normal. Patient had exacerbation of chronic renal insufficiency with a creatinine of 2.8, baseline around 2. Patient's blood pressure medications were held as he was not taking oral medication the time of admission. Consideration should be given for reinstitution of beta-eric therapy IV if his blood pressure trends up. Patient was accepted to the medical ICU blue team at [facility] under the care of Dr. Lobo. Home Meds and New Rx's Prescriptions: New ipratropium-albuterol 0.5 mg-3 mg(2.5 mg base)/3 mL Solution For Nebulization 3 ml UPD Q6H Qty: 0 RF: 0 albuterol sulfate 2.5 mg /3 mL (0.083 %) Solution For Nebulization 2.5 mg UPD Q2H PRN PRNQty: 1 RF: 0 Kishan Protect Cream 1 applic topical PRN PRNQty: 0 RF: 0 polyethylene glycol 3350 17 gram Powder In Packet 17 g PO DAILY PRN PRN (Reason: Constipation) Qty: 1 RF: 0 pantoprazole [Protonix] 40 mg Recon Soln 40 mg IVP Q24H Qty: 1 RF: 0 propofol 10 mg/mL Emulsion 1,000 mg IVPB INFUSION Qty: 1 RF: 0 sodium chloride 0.9 % (flush) [Monoject 0.9% Sodium Chloride] Syringe 1 ml IVP PRN PRNQty: 1 RF: 0 lorazepam 2 mg/mL Solution 0.5 mg IVP Q4H PRN PRNQty: 0 RF: 0 morphine 4 mg/mL Solution 2 - 4 mg IVP Q2H PRN PRNQty: 0 RF: 0 Iv Access 1 ea IV DIRECTED Qty: 0 RF: 0 Continued insulin glargine 100 unit/mL Solution 12 unit SUBCUT DAILY RF: 0 bisacodyl [Dulcolax (bisacodyl)] 10 mg Suppository 10 mg MA PRN PRNRF: 0 olodaterol 2.5 mcg/actuation Mist 2 inh INHALATION DAILY RF: 0 albuterol sulfate 90 mcg/actuation Aerosol Powdr Breath Activated 2 inh INHALATION Q4H PRN PRN (Reason: Shortness Of Breath) RF: 0 Discontinued furosemide [Lasix] 40 mg Tablet 40 mg PO DAILY RF: 0 doxazosin 1 mg Tablet 1 mg PO DAILY RF: 0 pravastatin 40 mg Tablet 40 mg PO HS RF: 0 chlorthalidone 25 mg Tablet 25 mg PO BID RF: 0 aspirin [Aspir-Low] 81 mg Tablet,Delayed Release (Dr/Ec) 81 mg DAILY RF: 0 isosorbide mononitrate 60 mg Tablet Extended Release 24 Hr 60 mg PO DAILY RF: 0 magnesium hydroxide [Milk of Magnesia] 400 mg/5 mL Suspension 30 ml PO PRN PRNRF: 0 amlodipine 10 mg Tablet 10 mg PO DAILY RF: 0 Fleet Enema 19-7 gram/118 mL Enema 118 ml MA PRN PRNRF: 0 omeprazole 20 mg Capsule,Delayed Release(Dr/Ec) 20 mg PO DAILY RF: 0 allopurinol 300 mg Tablet 150 mg PO DAILY RF: 0 ergocalciferol (vitamin D2) 1,250 mcg (50,000 unit) Capsule 1,250 mcg PO QWEEK RF: 0 labetalol 100 mg Tablet 300 mg PO BID RF: 0 losartan 100 mg Tablet 100 mg PO DAILY RF: 0 albuterol sulfate 2.5 mg/0.5 mL Solution For Nebulization 2.5 mg inhalation PRN PRNRF: 0 acetaminophen 325 mg Tablet 650 mg PO Q8H PRNRF: 0 Discharge Instructions Instructions: Heart Failure (DC) Activity:: ICU status, bedrest Diet:: NPO Discharge Orders Discharge Orders: Discharge Order (Routine); Ordered 04/30/19 Ordered By: Pancho Elaine DS: Summary Status at Discharge Functional status at discharge: bed bound Overall status at discharge: patient is not back to baseline Mental Status: other (Intubated and sedated) Speech and Movement: other (Minimally responsive) Mood: other (Intubated and sedated) Affect: other Exam Narrative Exam Narrative: General: Elderly male, intubated and sedated. Neuro: Responds to noxious stimuli, not following commands. Moving 4 extremities. Pupils equal bilaterally and reactive, 2 to 3 mm. Skin: visible skin intact HEENT: Atraumatic, normocephalic, EOMI when wakes up, MMM, wearing BiPAP, oropharyngeal exam impossible due to this, no submandibular or cervical lymphadenopathy, no goiter or JVD Heart: RRR, + 3 out of 6 SUSAN left upper sternal border to neck Lungs: Diminished at bilateral bases, no rales on my exam. Breath sounds bilaterally in upper lung [place]. GI: abdomen is soft, nondistended Extremities: 2+ BLE pitting edema to shins. Psych Mental Status: other (Intubated and sedated) Speech and Movement: other (Minimally responsive) Mood: other (Intubated and sedated) Affect: other DS: Data Vitals/I&O Vitals and I&O: Vital Signs Temperature 36.6 C 04/30/19 17:02 Temperature Source Temporal Artery Scan 04/30/19 17:02 Pulse 62 04/30/19 17:02 Pulse 82 04/30/19 11:40 Respiratory Rate 17 04/30/19 17:02 Respiratory Effort Accessory Muscle Use 04/30/19 11:30 Respiratory Depth Retractive 04/30/19 07:45 Respiratory Pattern Normal 04/30/19 11:30 Blood Pressure 136/58 L 04/30/19 17:02 Blood Pressure Mean 107 04/30/19 11:30 Blood Pressure Position Supine 04/30/19 11:30 Pulse Oximetry 97 04/30/19 17:02 Respiratory End-tidal CO2 39 04/30/19 16:59 Oxygen Delivery Method Mechanical Ventilator 04/30/19 17:02 Oxygen Flow Rate 0 04/30/19 17:02 Fraction of Inspired Oxygen (FIO2) 35 04/30/19 17:02 Pain Level 0 04/30/19 12:30 Comment 04/30/19 12:30 Intake & Output 04/29/19 04/30/19 04/30/19 23:59 11:59 23:59 Intake Total 200 / 200 100 / 200 100 / 200 Output Total 1375 / 1375 400 / 850 450 / 850 Balance -1175 / -1175 -300 / -650 -350 / -650 Weight 74.4 kg 78.2 kg Intake: IV 200 / 200 100 / 200 100 / 200 Output: Urine 1375 / 1375 400 / 850 450 / 850 Other: Urine Color Pale Yellow Light Helena Yellow Urine Appearance Clear Cloudy Cloudy Sediment Comment garrett to gravity with light colored yellow urine with sediment in it garrett in place and patent draining medium helena urine Data Completed and Pending Labs on day of discharge: Labs from last 24 hours 04/30/19 04/30/19 04/30/19 16:08 14:04 13:53 WBC RBC Hgb Hct MCV MCH MCHC RDW Plt Count MPV Immature Gran % Neutrophils % Lymphocytes % Monocytes % Eosinophils % Basophils % Absolute Neutrophils Absolute Lymphocytes Absolute Monocytes Absolute Eosinophils Absolute Basophils ABG Sample Site Left radial Left radial ABG pH 7.35 7.28 L ABG pCO2 58 H 66 H* ABG pO2 62 L 60 L ABG HCO3 32 H 31 H ABG Total CO2 31 H 31 H ABG O2 Saturation 94 92 L ABG Base Excess 5.8 H 4.1 H Oxygen Liter Flow Asv min/vent 120% p5 Asv, 110%min/vent%, FiO2 35 35 Sodium Potassium Chloride Carbon Dioxide Anion Gap BUN Creatinine Estimated GFR/1.73 m2 Glucose Calcium Magnesium Iron TIBC Transferrin % Sat Ferritin Vitamin B12 Folate Procalcitonin Coronavirus (PCR) Pending 04/30/19 04/30/19 04/30/19 09:15 06:15 06:15 WBC RBC Hgb Hct MCV MCH MCHC RDW Plt Count MPV Immature Gran % Neutrophils % Lymphocytes % Monocytes % Eosinophils % Basophils % Absolute Neutrophils Absolute Lymphocytes Absolute Monocytes Absolute Eosinophils Absolute Basophils ABG Sample Site Left radial ABG pH 7.15 L* ABG pCO2 90 H* ABG pO2 80 L ABG HCO3 31 H ABG Total CO2 32 H ABG O2 Saturation 95 ABG Base Excess 2.3 Oxygen Liter Flow Bipap 15/6 FiO2 50% Sodium Potassium Chloride Carbon Dioxide Anion Gap BUN Creatinine Estimated GFR/1.73 m2 Glucose Calcium Magnesium Iron TIBC Transferrin % Sat Ferritin Vitamin B12 765 Folate > 20.0 H Procalcitonin 1.0 Coronavirus (PCR) 04/30/19 04/30/19 04/30/19 06:15 06:15 06:15 WBC 8.65 RBC 2.59 L Hgb 7.7 L Hct 26.4 L MCV 101.9 H MCH 29.7 MCHC 29.2 L RDW 14.1 Plt Count 176 MPV 11.5 H Immature Gran % 0.6 Neutrophils % 83.5 Lymphocytes % 9.1 Monocytes % 6.7 Eosinophils % 0.0 Basophils % 0.1 Absolute Neutrophils 7.22 H Absolute Lymphocytes 0.79 L Absolute Monocytes 0.58 Absolute Eosinophils 0.00 Absolute Basophils 0.01 ABG Sample Site ABG pH ABG pCO2 ABG pO2 ABG HCO3 ABG Total CO2 ABG O2 Saturation ABG Base Excess Oxygen Liter Flow FiO2 Sodium 153 H Potassium 3.7 Chloride 112 H Carbon Dioxide 33.6 H Anion Gap 7.4 BUN 91 H* Creatinine 2.61 H Estimated GFR/1.73 m2 23.95 Glucose 133 H Calcium 9.3 Magnesium 2.6 H Iron 18 L TIBC 236 L Transferrin % Sat 8 L Ferritin 114 Vitamin B12 Folate Procalcitonin Coronavirus (PCR) [facility] Medical History (Updated 04/29/19 @ 14:02 by Norah Knutson MD) Chronic combined systolic and diastolic CHF (congestive heart failure) (Acute) COPD (chronic obstructive pulmonary disease) (Chronic) Depression (Chronic) Diabetes mellitus (Chronic) GERD (gastroesophageal reflux disease) (Chronic) Gout (Chronic) Hernia (Chronic) High cholesterol (Chronic) Renal failure (Chronic) Renal insufficiency (Chronic) Surgical History (Updated 04/29/19 @ 13:52 by Norah Knutson MD) Surgical history unknown (Inactive) Family History (Updated 04/29/19 @ 13:52 by Norah Knutson MD) Other Family history unobtainable Social History Smoking/Tobacco Use Status: Never Alcohol Intake: never Drug use: Never Substance use type: does not use Do you feel safe at home: Yes Do you feel safe in your relationship?: Yes
[2019-04-30] MEDS: Furosemide 40 MG/4 ML VIAL 80 MG IVP (18:36)
[2019-04-30] MEDS: PROPOFOL 1,000 MG/100 ML BTL 37.536 MG IVPB (22:04)
[2019-05-01 17:58] LABS: COVID-19 RT-PCR Result Not Detected
--- NOTE | 2019-05-04 11:51 | DIABASSESS_ITS ---
Date of service: 05/04/19 Time of Service: 11:52 Diabetes Note NOTE: Appreciate diabetes consult for Mr. Ibrahim who is hospitalized with CHF. No current A1c BMI 21 He was discharged prior to this documentation. He had an A1c 08/26 at 7.1 without further documentation in the diagnostic report. He has no diabetes medications listed on his medication list. Blood sugars here 110-194mg/dl with no nourishment intake available. At this time no indication of need for self management given he lives in correction facility. BLood sugars reasonably well managed at is time given his age and co-morbidities. Time Spent in Nutritional Counseling and Treatment: 0 minutes face to face
== END 2019-04-30 22:55 | disposition short-term general hospital (02) | DRG 208 ==
LOC: ER 11:47 → ICU 13:53 → RICU 04-30 12:50
PROVIDERS: Family Medicine; Admitting Provider Internal Medicine; Emergency Provider Physician Assistant; PCP Student in an Organized Health Care Education/Training Program; Visit Provider Internal Medicine
DX: J96.21 Acute and chronic respiratory failure with hypoxia (principal); J18.9 Pneumonia, unspecified organism; I50.43 Acute on chronic combined systolic (congestive) and diastolic (congestive) heart failure; G92 Toxic encephalopathy; E87.2 Acidosis; J96.22 Acute and chronic respiratory failure with hypercapnia; N18.3 Chronic kidney disease, stage 3 (moderate); E11.22 Type 2 diabetes mellitus with diabetic chronic kidney disease; J44.9 Chronic obstructive pulmonary disease, unspecified; F32.9 Major depressive disorder, single episode, unspecified; K21.9 Gastro-esophageal reflux disease without esophagitis; M10.9 Gout, unspecified; E78.00 Pure hypercholesterolemia, unspecified; Z79.4 Long term (current) use of insulin; D50.0 Iron deficiency anemia secondary to blood loss (chronic)
CPT/HCPCS: 36415; 36416; 51702; 71045; 71250; 80048; 80053; 82805; 82962; 84145; 93005; 94640; 96365; 96375; 99239; 99285; 99292; U0003; 36600; 70450; 71046; 81003; 82607; 82728; 82746; 83540; 83550; 83605; 83735; 83880; 84484; 85025; 93010; 94002; 94660; J1644; J1940; J2060; J2270; J7060; J7620